=== PATIENT | male | born 1960 | race Hispanic/Latino ===

== ENCOUNTER 2019-12-05 18:06 | Emergency (ER) | payer BC ==
[2019-12-05] MEDS ORDERED: ONDANSETRON 4 MG/2 ML VIAL ONE (19:12)
[2019-12-05] MEDS ORDERED: MORPHINE 4 MG/ML SYR ONE (19:12)
[2019-12-05 19:31] LABS: Absolute Lymphocytes (CBC) 1.4 K/uL (0.7-4.9); Basophils % 0.7 % (0-1.3); Hematocrit 51.3 % (39.6-49.0); Lymphocytes % 13.4 % (15.3-44.8); RBC Red Blood Cell Count 6.26 M/uL (4.33-5.43)
[2019-12-05 19:53] LABS: Albumin 4.5 g/dL (3.4-5.0); Bilirubin Direct 0.1 mg/dL (0-0.2); Bilirubin Total 0.6 mg/dL (0.2-1.0); Potassium 4.1 mmol/L (3.5-5.1); Protein, Total 8.9 g/dL (6.4-8.2)
--- NOTE | 2019-12-05 20:21 | RAD REPORT ---
EXAM DESCRIPTION: CTAbdomen Pelvis W Contrast - 12/05/2019 8:11 pm CLINICAL HISTORY: Abdominal pain. ABD PAIN COMPARISON: No comparisons TECHNIQUE: Biphasic CT imaging of the abdomen and pelvis was performed with 100 ml non-ionic IV cont rast. All CT scans are performed using dose optimization technique as appropriate and may include automated exposure control or mA/KV adjustment according to patient size. FINDINGS: Linear subsegmental atelectasis in both medial lung bases. The liver, spleen, pancreas, adrenal glands and right kidney are within normal limits. 8 mm stone is present in the proximal left ureter (1330 HU) with mild left hydronephrosis. No bowel obstruction, free air, free fluid or abscess. Small fat containing umbilical hernia. The gallito endix is normal. No evidence of significant lymphadenopathy. No suspicious bony findings. IMPRESSION: 8 mm stone (1330 HU) in the proximal left femur resulting in mild left hydronephrosis.
[2019-12-05] MEDS ORDERED: TAMSULOSIN 0.4 MG SR CAP ONE (20:51)
[2019-12-05] MEDS ORDERED: KETOROLAC 30 MG/ML INJ ONE (20:52)
[2019-12-05] MEDS ORDERED: NA CHLORIDE 0.9% 500 ML ONE (20:52)
[2019-12-05] MEDS ORDERED: CEFTRIAXONE/SWI 1gm 1 GM/10 ML SYR ONE (20:52)
[2019-12-05] MEDS ORDERED: Magnesium Sulfate 2gm IVPB 2 G/50 ML BAG IV ONE (20:54)
--- NOTE | 2019-12-05 21:01 | RAD REPORT ---
EXAM DESCRIPTION: RAD - Abdomen 1 View (KUB) - 12/05/2019 8:56 pm CLINICAL HISTORY: ABD PAIN Pain COMPARISON: Abdomen Pelvis W Contrast dated 12/05/2019 FINDINGS: The bowel gas pattern is non-obstructive. No evidence of free air or pneumatosis. Bena s tone is seen projecting at the level of the left L3 transverse process.
--- NOTE | 2019-12-05 21:43 | ER ---
Nurse's Notes [facility] Name: Arnav Swain Age: 59 yrs Sex: Male : 1960 Arrival Date: 12/05/2019 Time: 18:10 Bed 16 Private MD: Levon Thompson Diagnosis: Hydronephrosis with renal and ureteral calculous obstruction Presentation: 12/05 18:26 Presenting complaint: Patient states: pain last night and couldn't sleep. pain to LLQ, iw denies n/v/d , last BM was yesterday and normal. Transition of care: patient was not received from another setting of care. Onset of symptoms was December 05, 2019. Risk Assessment: Do you want to hurt yourself or someone else? Patient reports no desire to harm self or others. Initial Sepsis Screen: Does the patient meet any 2 criteria? No. Patient's initial sepsis screen is negative. Does the patient have a suspected source of infection? No. Patient's initial sepsis screen is negative. Care prior to arrival: None. 18:26 Method Of Arrival: Ambulatory iw 18:26 Acuity: BERHANE 3 iw Historical: - Allergies: 18:29 No Known Allergies; iw - Home Meds: 18:29 clonidine HCl 0.1 mg Oral tab [Active]; metformin 500 mg Oral Tb24 2 tabs 2 times per iw day [Active]; clonazepam 0.5 mg Oral TbDL nightly [Active]; hydrochlorothiazide 12.5 mg Oral tab 1 tab once daily [Active]; nifedipine 90 mg Oral TbER 1 tab once daily [Active]; - PMHx: 18:29 Hypertension; Diabetes - NIDDM; iw - PSHx: 18:29 None; iw - Immunization history:: Adult Immunizations not up to date. - Social history:: Smoking status: . - Ebola Screening: : Patient negative for fever greater than or equal to 101.5 degrees Fahrenheit, and additional compatible Ebola Virus Disease symptoms Patient denies exposure to infectious person Patient denies travel to an Ebola-affected area in the 21 days before illness onset No symptoms or risks identified at this time. Screenin:21 Abuse screen: Denies threats or abuse. Nutritional screening: No deficits noted. ea Tuberculosis screening: No symptoms or risk factors identified. Fall Risk None identified. Assessment: 19:19 General: Appears uncomfortable, Behavior is calm, cooperative, appropriate for age. ea Pain: Complains of pain in abdomen. Neuro: Level of Consciousness is awake, alert, obeys commands, Oriented to person, place, time. Respiratory: Airway is patent Respiratory effort is even, unlabored, Respiratory pattern is regular, symmetrical. GI: Bowel sounds present X 4 quads. Abd is soft X 4 quads. Derm: Skin is pink, warm \T\ dry. 20:00 Reassessment: Patient and/or family updated on plan of care and expected duration. Pain ea level reassessed. Patient is alert, oriented x 3, equal unlabored respirations, skin warm/dry/pink. 21:28 Reassessment: Patient and/or family updated on plan of care and expected duration. Pain ea level reassessed. Patient is alert, oriented x 3, equal unlabored respirations, skin warm/dry/pink. Vital Signs: 18:29 BP 163 / 100; Pulse 89; Resp 16; Temp 99.3; Pulse Ox 100% on R/A; Weight 91.63 kg; iw Height 5 ft. 9 in. (175.26 cm); Pain 9/10; 19:20 BP 160 / 94; Pulse 78; Resp 18; Pulse Ox 99% on R/A; ea 21:38 BP 160 / 98; Pulse 90; Resp 18; Pulse Ox 100% on R/A; ea 22:10 BP 140 / 85; Pulse 88; Resp 18; Temp 97.2; Pulse Ox 98% ; ea 18:29 Body Mass Index 29.83 (91.63 kg, 175.26 cm) iw ED Course: 18:10 Patient arrived in ED. mr 18:10 Levon Thompson MD is Private Physician. mr 18:27 Triage completed. iw 18:38 Sherman Jackson FNP-C [facility]. la1 18:38 Francis Araya MD is Attending Physician. la1 19:07 Sonam Noble, WENDI is Primary Nurse. ea 19:15 Inserted saline lock: 20 gauge in left antecubital area, using aseptic technique. Blood wh collected. 19:21 Patient has correct armband on for positive identification. Placed in gown. Bed in low ea position. Call light in reach. Side rails up X2. 19:21 Arm band placed on right wrist. Patient placed in an exam room, on a stretcher, on ea pulse oximetry. 20:11 CT Abd/Pelvis - IV Contrast Only In Process Unspecified. EDMS 20:55 Abdomen 1 View (KUB) XRAY In Process Unspecified. EDMS 21:43 Arjun Santiago MD is Referral Physician. la1 22:25 No provider procedures requiring assistance completed. IV discontinued, intact, ea bleeding controlled, No redness/swelling at site. Pressure dressing applied. Administered Medications: 19:18 Drug: Zofran 4 mg Route: IVP; Site: left antecubital; ea 20:00 Follow up: Response: No adverse reaction ea 19:19 Drug: morphine 4 mg Route: IVP; Site: left antecubital; ea 20:00 Follow up: Response: No adverse reaction; Pain is decreased ea 21:05 Drug: TORadol - Ketorolac 15 mg Route: IVP; Site: left antecubital; ea 22:24 Follow up: Response: No adverse reaction; Pain is decreased ea 21:11 Drug: Flomax 0.4 mg Route: PO; ea 22:24 Follow up: Response: No adverse reaction ea 21:11 Drug: Rocephin 1 grams Route: IV; Rate: calculated rate; Site: left antecubital; ea 21:30 Follow up: Response: No adverse reaction; IV Status: Completed infusion ea 21:12 Drug: NS 0.9% 500 ml Route: IV; Rate: bolus; Site: left antecubital; ea 22:24 Follow up: Response: No adverse reaction; IV Status: Completed infusion; IV Intake: ea 500ml 21:12 Drug: Magnesium Sulfate 1 grams Route: IVPB; Infused Over: 1 hrs; Site: left ea antecubital; 22:25 Follow up: Response: No adverse reaction; IV Status: Completed infusion ea Intake: 22:24 IV: 500ml; Total: 500ml. ea Outcome: 21:43 Discharge ordered by . la1 22:26 Discharged to home ambulatory, with family. ea 22:26 Condition: stable 22:26 Discharge instructions given to patient, Instructed on discharge instructions, follow up and referral plans. medication usage, Demonstrated understanding of instructions, follow-up care, medications, Prescriptions given X 4. 22:28 Patient left the ED. ea Signatures: Dispatcher Happy Cosas [facility] Supa, Kelsey mr Aida Leon, RN RN Sherman Santos, CUSTOMER SUPPORT CONSULTANT-C CUSTOMER SUPPORT CONSULTANT-Cla1 Sonam Noble, RN Ivan Vela ea
--- NOTE | 2019-12-05 21:43 | EDPHYS ---
Physician Documentation [facility] Name: Arnav Swain Age: 59 yrs Sex: Male : 1960 Arrival Date: 12/05/2019 Time: 18:10 Bed 16 Private MD: Levon Thompson ED Physician Francis Araya HPI: 12/05 20:15 This 59 yrs old Male presents to ER via Ambulatory with complaints of la1 Abdominal Pain. 20:15 The patient presents with abdominal pain in the left lower quadrant. Onset: The la1 symptoms/episode began/occurred 2 day(s) ago. The symptoms do not radiate. Associated signs and symptoms: Pertinent positives: nausea, Pertinent negatives: diarrhea, vomiting. The symptoms are described as sharp. Modifying factors: The symptoms are alleviated by nothing, the symptoms are aggravated by pressure, touching the area. Severity of pain: At its worst the pain was severe in the emergency department the pain has improved. The patient has not experienced similar symptoms in the past. Historical: - Allergies: 18:29 No Known Allergies; iw - Home Meds: 18:29 clonidine HCl 0.1 mg Oral tab [Active]; metformin 500 mg Oral Tb24 2 tabs 2 times per iw day [Active]; clonazepam 0.5 mg Oral TbDL nightly [Active]; hydrochlorothiazide 12.5 mg Oral tab 1 tab once daily [Active]; nifedipine 90 mg Oral TbER 1 tab once daily [Active]; - PMHx: 18:29 Hypertension; Diabetes - NIDDM; iw - PSHx: 18:29 None; iw - Immunization history:: Adult Immunizations not up to date. - Social history:: Smoking status: . - Ebola Screening: : Patient negative for fever greater than or equal to 101.5 degrees Fahrenheit, and additional compatible Ebola Virus Disease symptoms Patient denies exposure to infectious person Patient denies travel to an Ebola-affected area in the 21 days before illness onset No symptoms or risks identified at this time. ROS: 20:18 Constitutional: Negative for fever, chills, and weight loss, Eyes: Negative for injury, la1 pain, redness, and discharge, ENT: Negative for injury, pain, and discharge, Neck: Negative for injury, pain, and swelling, Cardiovascular: Negative for chest pain, palpitations, and edema, Respiratory: Negative for shortness of breath, cough, wheezing, and pleuritic chest pain. 20:18 Back: Negative for injury and pain, : Negative for injury, bleeding, discharge, and swelling, MS/Extremity: Negative for injury and deformity, Neuro: Negative for headache, weakness, numbness, tingling, and seizure. 20:18 Abdomen/GI: Positive for abdominal pain. Exam: 20:18 Constitutional: This is a well developed, well nourished patient who is awake, alert, la1 and in no acute distress. Head/Face: Normocephalic, atraumatic. Eyes: Periorbital areas with no swelling, redness, or edema. ENT: Mucous membranes moist. Neck: Trachea midline Chest/axilla: Normal chest wall appearance and motion. Nontender with no deformity. No lesions are appreciated. Cardiovascular: Regular rate and rhythm with a normal S1 and S2. No gallops, murmurs, or rubs. Normal PMI, no JVD. No pulse deficits. Respiratory: Lungs have equal breath sounds bilaterally, clear to auscultation No rales, rhonchi or wheezes noted. No increased work of breathing, no retractions or nasal flaring. 20:18 Abdomen/GI: Inspection: obese Bowel sounds: normal, in all quadrants, Palpation: soft, in all quadrants, moderate abdominal tenderness, in the left lower quadrant, Indicators: McBurney's point is not tender, Ruiz's sign is negative, Rovsing's sign is negative, Obturator sign is negative, Psoas sign is negative. Vital Signs: 18:29 BP 163 / 100; Pulse 89; Resp 16; Temp 99.3; Pulse Ox 100% on R/A; Weight 91.63 kg; iw Height 5 ft. 9 in. (175.26 cm); Pain 9/10; 19:20 BP 160 / 94; Pulse 78; Resp 18; Pulse Ox 99% on R/A; ea 21:38 BP 160 / 98; Pulse 90; Resp 18; Pulse Ox 100% on R/A; ea 22:10 BP 140 / 85; Pulse 88; Resp 18; Temp 97.2; Pulse Ox 98% ; ea 18:29 Body Mass Index 29.83 (91.63 kg, 175.26 cm) iw MDM: 19:16 Patient medically screened. la1 20:57 Data reviewed: vital signs, nurses notes, lab test result(s), radiologic studies, I la1 have discussed the patient's presentation/case with the attending Emergency Department Physician; and as a result, I will discharge patient. Counseling: I had a detailed discussion with the patient and/or guardian regarding: the historical points, exam findings, and any diagnostic results supporting the discharge/admit diagnosis, lab results, radiology results, the need for outpatient follow up, a urologist, to return to the emergency department if symptoms worsen or persist or if there are any questions or concerns that arise at home. Response to treatment: the patient's symptoms have mildly improved after treatment, patient is well hydrated. and as a result, I will discharge patient. Physician consultation: Arjun Santiago MD was called at 20:57, was contacted at 20:57, regarding consult, outpatient follow-up, tomorrow, and will see patient in office, tomorrow. Special discussion: Based on the history and exam findings, there is no indication for further emergent testing or inpatient evaluation. I discussed with the patient/guardian the need to see the urologist for further evaluation of the symptoms. 12/05 19:07 Order name: Basic Metabolic Panel; Complete Time: 19:56 12/05 19:07 Order name: CBC with Diff; Complete Time: :56 12/05 19:07 Order name: Creatinine for Radiology; Complete Time: :56 12/05 19:07 Order name: Hepatic Function; Complete Time: 19:56 12/05 19:07 Order name: Lipase; Complete Time: 19:56 12/05 22:13 Order name: Urine Dipstick--Ancillary (enter results) [facility] 12/05 19:16 Order name: CT Abd/Pelvis - IV Contrast Only; Complete Time: 21:10 tx12/05 20:33 Order name: Abdomen 1 View (KUB) XRAY; Complete Time: 21:10 tx12/05 19:07 Order name: IV Saline Lock; Complete Time: 19:16 12/05 19:07 Order name: Labs collected and sent; Complete Time: 19:17 12/05 20:30 Order name: Urine Dipstick-Ancillary (obtain specimen); Complete Time: 22:12 tx Administered Medications: 19:18 Drug: Zofran 4 mg Route: IVP; Site: left antecubital; ea 20:00 Follow up: Response: No adverse reaction ea 19:19 Drug: morphine 4 mg Route: IVP; Site: left antecubital; ea 20:00 Follow up: Response: No adverse reaction; Pain is decreased ea 21:05 Drug: TORadol - Ketorolac 15 mg Route: IVP; Site: left antecubital; ea 22:24 Follow up: Response: No adverse reaction; Pain is decreased ea 21:11 Drug: Flomax 0.4 mg Route: PO; ea 22:24 Follow up: Response: No adverse reaction ea 21:11 Drug: Rocephin 1 grams Route: IV; Rate: calculated rate; Site: left antecubital; ea 21:30 Follow up: Response: No adverse reaction; IV Status: Completed infusion ea 21:12 Drug: NS 0.9% 500 ml Route: IV; Rate: bolus; Site: left antecubital; ea 22:24 Follow up: Response: No adverse reaction; IV Status: Completed infusion; IV Intake: ea 500ml 21:12 Drug: Magnesium Sulfate 1 grams Route: IVPB; Infused Over: 1 hrs; Site: left ea antecubital; 22:25 Follow up: Response: No adverse reaction; IV Status: Completed infusion ea Disposition: 12/05/19 21:43 Discharged to Home. Impression: Hydronephrosis with renal and ureteral calculous obstruction. - Condition is Stable. - Discharge Instructions: Kidney Stones, Hydronephrosis. - Prescriptions for Cipro 500 mg Oral Tablet - take 1 tablet by ORAL route every 12 hours for 7 days; 14 tablet. Tylenol- Codeine #3 300-30 mg Oral Tablet - take 2 tablets by ORAL route every 6 hours As needed; 20 tablet. Zofran 4 mg Oral Tablet - take 1 tablet by ORAL route every 12 hours As needed; 6 tablet. Flomax 0.4 mg Oral Capsule, Sust. Release 24 hr - take 1 capsule by ORAL route once daily 1/2 hour following the same meal each day; 15 capsule. - Medication Reconciliation Form, Thank You Letter, Antibiotic Education, Prescription Opioid Use, Work release form form. - Follow up: Arjun Santiago MD; When: Tomorrow. - Problem is new. - Symptoms have improved. - Notes: Go to Dr. Hurt office at 0730 tomorrow morning. Address and phone number are in the discharge paperwork. Make sure you have the disk with you that was given to you in the ER. Addendum: 12/07/2019 19:48 Co-signature as Attending Physician, Francis Araya MD. r n Signatures: Dispatcher [employer] Aida Parish RN RN iw Nieto, Roman, MD MD rn Sherman Jackson, STATE ATTORNEY-C STATE ATTORNEY-Cla1 Sonam Noble RN RN ea Corrections: (The following items were deleted from the chart) 12/05 22:28 21:43 12/05/2019 21:43 Discharged to Home. Impression: Hydronephrosis with renal and ea ureteral calculous obstruction. Condition is Stable. Forms are Medication Reconciliation Form, Thank You Letter, Antibiotic Education, Prescription Opioid Use. Follow up: Arjun Santiago; When: Tomorrow. Problem is new. Symptoms have improved. la1
[2019-12-05 22:21] LABS: Urine Blood 2+ (NEG); Urine Glucose NEGATIVE (NEG); Urine Protein NEGATIVE (NEG); Urine Specific Gravity 1.015 (1.005-1.030)
[2019-12-05 22:48] VITALS: BP 140/85; TEMP 97.2; O2SAT 98
== END 2019-12-05 22:28 | disposition home or self-care (01) ==
LOC: ER 18:06
DX: N13.2 Hydronephrosis with renal and ureteral calculous obstruction (principal); I10 Essential (primary) hypertension; E11.9 Type 2 diabetes mellitus without complications
CPT/HCPCS: 96365; 85025; 80048; 36415; 80076; 81003; 83690; 74177; 74018; 96375; 99284; Q9967; J3475; J0696; J7040; J2405

== ENCOUNTER 2024-08-22 06:51 | Inpatient (IN) | payer BC, OTHER ==
[2024-08-22 07:35] LABS: Absolute Basophils 0.1 K/uL (0-0.5); Absolute Lymphocytes (CBC) 1.4 K/uL (0.7-4.9); Absolute Monocytes 0.6 K/uL (0.1-1.3); Absolute Neutrophil 5.6 K/uL (1.8-8.0); Basophils % 0.8 % (0-1.3); Eosinophils % 0.2 % (0-4.4); Hemoglobin 17.1 g/dL (13.6-17.9); Lymphocytes % 17.8 % (15.3-44.8); MCH 27.4 pg (27.0-35.0); MCHC 32.8 g/dL (32.0-36.0); MCV 83.4 fL (80-100); MPV 7.5 fL (7.6-11.3); Neutrophils % 73.2 % (41.7-73.7); Nucleated Red Blood Cells % 0.3 % (0-0); Platelets 219 thou/uL (152-406); RBC Red Blood Cell Count 6.24 M/uL (4.33-5.43); Red Cell Distribution Width 14.6 % (12.1-15.2)
--- NOTE | 2024-08-22 07:40 | RAD REPORT ---
EXAMINATION: ONE VIEW CHEST XR CLINICAL INDICATION: Male, 64 years old.CHEST PAIN TECHNIQUE: 1 View, AP supine, X-ray of the chest was performed. [id number]. COMPARISON: 12/06/2019 FINDINGS: Lungs and pleura: Clear lungs. No effusion. Heart and mediastinum: Normal heart size. Unremarkable mediastinal contours. Osseous structures: No acute abnormality. Tubes/lines: None Other: None. IMPRESSION: No acute intrathoracic abnormality.
[2024-08-22 07:55] LABS: Troponin High Sensitivity 4709.6 pg/mL (<58.9)
[2024-08-22] MEDS ORDERED: ASPIRIN 81 MG CHEWABLE TABLET ONE (08:17)
[2024-08-22] MEDS ORDERED: ONDANSETRON 4 MG/2 ML VIAL ONE (08:17)
[2024-08-22] MEDS ORDERED: KETOROLAC 30 MG/ML INJ ONE (08:17)
[2024-08-22] MEDS ORDERED: METOCLOPRAMIDE 10 MG/2mL INJ ONE (08:18)
[2024-08-22] MEDS ORDERED: HEPARIN 5000 UNIT/ML 1 ML VIAL ONE ×2 (08:18→10:44)
[2024-08-22] MEDS ORDERED: NA CHLORIDE 0.9% 1,000 ML ONE (08:18)
[2024-08-22] MEDS ORDERED: MORPHINE 4 MG/ML SYR ONE (08:18)
[2024-08-22] MEDS ORDERED: FAMOTIDINE 20 MG/2 ML VIAL IV ONE (08:18)
[2024-08-22] MEDS ORDERED: HEPARIN/D5W 25,000 UNIT/500 ML BAG IV ONE (08:19)
[2024-08-22 08:22] LABS: ALT/SGPT 57 U/L (16-61); AST/SGOT 76 U/L (15-37); Albumin 3.7 g/dL (3.4-5.0); Albumin/Globulin Ratio 0.9 (1.1-1.8); Alkaline Phosphatase 94 U/L (45-117); Bilirubin Total 0.4 mg/dL (0.2-1.0); Globulin 3.9 g/dL (2.3-3.5); Protein, Total 7.6 g/dL (6.4-8.2)
[2024-08-22 08:24] LABS: Bilirubin Direct < 0.2 mg/dL (0-0.2); Bilirubin Indirect, Calculated 0.2 mg/dL (0.2-0.8)
--- NOTE | 2024-08-22 08:46 | ER ---
Nurse's Notes [facility] Name: Arnav Swain Age: 64 yrs Sex: Male : 1960 Arrival Date: 08/22/2024 Time: 06:51 Bed 19 Private MD: Diagnosis: Obesity, unspecified;Essential (primary) hypertension;Non ST elevation MO Presentation: 08/22 07:11 Chief complaint: Patient states: felt like he had gastritis last night, then he had iw pain into his chest this morning and nausea. Coronavirus screen: At this time, the client does not indicate any symptoms associated with coronavirus-19. Ebola Screen: No symptoms or risks identified at this time. Initial Sepsis Screen: Does the patient meet any 2 criteria? No. Patient's initial sepsis screen is negative. Does the patient have a suspected source of infection? No. Patient's initial sepsis screen is negative. Risk Assessment: Do you want to hurt yourself or someone else? Patient reports no desire to harm self or others. 07:11 Method Of Arrival: Ambulatory iw 07:11 Acuity: BERHANE 3 iw 07:15 Onset of symptoms was August 21, 2024 at 21:00. bp Triage Assessment: 07:15 General: Appears in no apparent distress. comfortable, Behavior is calm, cooperative, bp appropriate for age. Pain: Complains of pain in epigastric area. EENT: No deficits noted. Neuro: No deficits noted. Cardiovascular: No deficits noted. Respiratory: No deficits noted. GI: Abdomen is non-distended, Reports epigastric pain. : No signs and/or symptoms were reported regarding the genitourinary system. Derm: No deficits noted. Musculoskeletal: No deficits noted. Historical: - Allergies: 07:12 No Known Allergies; iw - Home Meds: 07:12 nifedipine 90 mg Oral TbER 1 tab once daily [Active]; iw - PMHx: 07:12 Hypertensive disorder; iw - PSHx: 07:12 None; iw - Immunization history:: Adult Immunizations up to date. - Infectious Disease History:: Denies. - Family history:: not pertinent. - Social history:: Smoking status: Patient denies any tobacco usage or history of. Screenin:15 [facility] ED Fall Risk Assessment (Adult) History of falling in the last 3 months, bp including since admission No falls in past 3 months (0 pts) Confusion or Disorientation No (0 pts) Intoxicated or Sedated No (0 pts) Impaired Gait No (0 pts) Mobility Assist Device Used No (0 pt) Altered Elimination No (0 pt) Score/Fall Risk Level 0 - 2 = Low Risk Oriented to surroundings. Abuse screen: Denies threats or abuse. Denies injuries from another. Nutritional screening: No deficits noted. Tuberculosis screening: No symptoms or risk factors identified. Assessment: 07:15 General: Appears in no apparent distress. Behavior is calm, cooperative, appropriate bp for age. 09:57 Reassessment: PT LIZ WITH OPHTHALMIC SURGEON. bp Vital Signs: 07:15 BP 162 / 96; Pulse 83; Resp 16; Temp 98; Pulse Ox 98% ; Weight 97.52 kg; bp 09:58 BP 160 / 82; Pulse 87; Resp 16; Pulse Ox 97% ; bp ED Course: 06:57 Patient arrived in ED. [id number] 07:12 Triage completed. iw 07:12 Arm band placed on. iw 07:14 Tom Vigil, RN is Primary Nurse. bp 07:15 Patient has correct armband on for positive identification. Bed in low position. bp 07:15 Initial lab(s) drawn, by me, sent to lab. EKG done, by ED staff, reviewed by Mj Mckay MD. Inserted saline lock: 20 gauge in right forearm, using aseptic technique. Blood collected. Flushed with 10 mL NS. 07:38 XRAY Chest (1 view) In Process Unspecified. EDMS 07:55 Mj Mckay MD is Attending Physician. sp4 08:00 Attending Physician role handed off by Mj Mckay MD miguel 08:00 Peter Villagomez MD is Attending Physician. miguel 08:45 Zhang Bland MD is Hospitalizing Provider. miguel 08:50 Hospitalizing Provider role handed off by Zhang Bland MD miguel 08:50 Brandon Cano is Hospitalizing Provider. miguel 09:27 0927 CM met with at the bedside in the ED exam room. Patient identified by ane name and . Demographic sheet confirmed. Patient states he lives with his in a 2 story home but states they both mainly lives on the first floor only. He reports that prior to admission, he performs ADLs independently. No DME, no HH, no home oxygen or other medical services at this time. Patient does not have an MPOA in place and his PCP is Dr. Levon Thompson. Patient's plan is to return home upon discharge and states his Brandy can transport him home. CM team will continue to follow and coordinate care during this hospital stay. 09:59 No provider procedures requiring assistance completed. Patient admitted, IV remains in bp place. Administered Medications: 08:05 Drug: morphine IVP or IV 4 mg IVP once over 4 mins Route: IVP; Infused Over: 4 mins; bp Site: right forearm; 10:01 Follow up: Response: No adverse reaction bp 08:05 Drug: Ondansetron IVP 4 mg IVP once; over 2 minutes Route: IVP; Site: right forearm; bp 10:00 Follow up: Response: No adverse reaction bp 08:05 Drug: metoCLOPramide IVP 10 mg IVP once; over 1 to 2 minutes Route: IVP; Site: right bp forearm; 10:00 Follow up: Response: No adverse reaction bp 08:05 Drug: NS 0.9% IV 1000 ml IV at 1 bolus Per protocol; 1000 mL bolus Route: IV; Rate: 1 bp bolus; Site: right forearm; 10:00 Follow up: IV Status: Completed infusion; IV Intake: 1000ml bp 08:05 Drug: Famotidine IVP 20 mg IVP once; dilute with 10 mL 0.9% NaCl; give over 2 minutes bp Route: IVP; Site: right forearm; 10:00 Follow up: Response: No adverse reaction bp 08:05 Drug: Aspirin PO Chewable Tablet 324 mg PO once; 81 mg tablets x 4 Route: PO; bp 10:00 Follow up: Response: No adverse reaction bp 08:05 Drug: Heparin (MO Drip) 12 units/kg/hr - ([place] [address] units, D5W IV 500 ml) IV at bp calculated rate Per protocol; Max initial rate 1000 units/hr {Co-Signature: ko1 (Larissa Ross RN).} Route: IV; Rate: calculated rate; Site: right forearm; 09:59 Follow up: IV Status: Infusion continued upon admission bp 08:05 Drug: Heparin (MO-Bolus No thrombolytic) - HEParin IVP 60 units/kg IVP once; Max 5000 bp units {Co-Signature: ko1 (Larissa Ross RN).} Route: IVP; Site: right forearm; 09:59 Follow up: Response: No adverse reaction bp 08:23 Not Given (Duplicate Order): [id number] mg IVP once miguel 08:23 Not Given (Duplicate Order): Heparin (MO-Bolus with thrombolytic) - units/kg miguel IVP once; Max 4000 units 09:00 Drug: Metoprolol PO 50 mg PO once Route: PO; bp 09:59 Follow up: Response: No adverse reaction bp Medication: 07:15 VIS not applicable for this client. bp Intake: 10:00 IV: 1000ml; Total: 1000ml. bp Outcome: 08:46 Decision to Hospitalize by Provider. miguel 09:58 Admitted to Risk Advisor accompanied by nurse, via stretcher, bp 09:58 Condition: stable 09:58 Instructed on the need for admit, 10:03 Patient left the ED. bp Signatures: Dispatcher [employer] EDPeter Walters MD MD cha Williams, Irene, RN WENDI iw Tom Vigil RN RN bp Mila Mendenhall [id number] Mj Mckay MD MD sp4 Bibi Dela Cruz RN RN ane Oliver, Kathy RN ko1 Corrections: (The following items were deleted from the chart) 08:02 07:15 BP 162 / 96; Pulse 83bpm; Resp 16bpm; Pulse Ox 98%; Temp 98F; bp bp
--- NOTE | 2024-08-22 08:46 | EDPHYS ---
Physician Documentation [facility] [place] Name: Arnav Swain Age: 64 yrs Sex: Male : 1960 Arrival Date: 08/22/2024 Time: 06:51 Bed 19 Private MD: MACEY Physician Peter Villagomez HPI: 08/22 08:39 This 64 yrs old Male presents to ER via Ambulatory with complaints of miguel Epigastric Pain, Chest Pain, Nausea. 08:39 The patient or guardian reports chest pain that is located primarily in the substernal miguel area, epigastric area, anterior chest wall, bilaterally. Onset: just prior to arrival, this morning. The pain radiates to back. Associated signs and symptoms: Pertinent positives: abdominal pain, dizziness, lightheadedness, shortness of breath. The chest pain is described as a pressure. Duration: The patient or guardian reports a single episode, that is still ongoing. Modifying factors: The symptoms are alleviated by nothing. the symptoms are aggravated by activity. Severity of pain: At its worst the pain was mild in the emergency department the pain is unchanged. The patient has not experienced similar symptoms in the past. Historical: - Allergies: 07:12 No Known Allergies; iw - Home Meds: 07:12 nifedipine 90 mg Oral TbER 1 tab once daily [Active]; iw - PMHx: 07:12 Hypertensive disorder; iw - PSHx: 07:12 None; iw - Immunization history:: Adult Immunizations up to date. - Infectious Disease History:: Denies. - Family history:: not pertinent. - Social history:: Smoking status: Patient denies any tobacco usage or history of. ROS: 08:39 Constitutional: Negative for fever, chills, and weight loss, Eyes: Negative for injury, miguel pain, redness, and discharge, ENT: Negative for injury, pain, and discharge, Neck: Negative for injury, pain, and swelling, Respiratory: Negative for shortness of breath, cough, wheezing, and pleuritic chest pain, Back: Negative for injury and pain, : Negative for injury, bleeding, discharge, and swelling, MS/Extremity: Negative for injury and deformity, Skin: Negative for injury, rash, and discoloration, Neuro: Negative for headache, weakness, numbness, tingling, and seizure, Psych: Negative for depression, anxiety, suicide ideation, homicidal ideation, and hallucinations, Allergy/Immunology: Negative for hives, rash, and allergies, Endocrine: Negative for neck swelling, polydipsia, polyuria, polyphagia, and marked weight changes, Hematologic/Lymphatic: Negative for swollen nodes, abnormal bleeding, and unusual bruising, 08:39 Cardiovascular: Positive for chest pain, of the chest, 08:39 Respiratory: Positive for shortness of breath, at rest. Exam: 08:39 Constitutional: This is a well developed, well nourished patient who is awake, alert, miguel and in no acute distress. Head/Face: Normocephalic, atraumatic. Eyes: Pupils equal round and reactive to light, extra-ocular motions intact. Lids and lashes normal. Conjunctiva and sclera are non-icteric and not injected. Cornea within normal limits. Periorbital areas with no swelling, redness, or edema. ENT: Nares patent. No nasal discharge, no septal abnormalities noted. Tympanic membranes are normal and external auditory canals are clear. Oropharynx with no redness, swelling, or masses, exudates, or evidence of obstruction, uvula midline. Mucous membranes moist. Neck: Trachea midline, no thyromegaly or masses palpated, and no cervical lymphadenopathy. Supple, full range of motion without nuchal rigidity, or vertebral point tenderness. No Meningismus. Chest/axilla: Normal chest wall appearance and motion. Nontender with no deformity. No lesions are appreciated. Cardiovascular: Regular rate and rhythm with a normal S1 and S2. No gallops, murmurs, or rubs. Normal PMI, no JVD. No pulse deficits. Respiratory: Lungs have equal breath sounds bilaterally, clear to auscultation and percussion. No rales, rhonchi or wheezes noted. No increased work of breathing, no retractions or nasal flaring. Abdomen/GI: Soft, non-tender, with normal bowel sounds. No distension or tympany. No guarding or rebound. No evidence of tenderness throughout. Back: No spinal tenderness. No costovertebral tenderness. Full range of motion. Male : Normal genitalia with no discharge or lesions. Skin: Warm, dry with normal turgor. Normal color with no rashes, no lesions, and no evidence of cellulitis. MS/ Extremity: Pulses equal, no cyanosis. Neurovascular intact. Full, normal range of motion. Neuro: Awake and alert, GCS 15, oriented to person, place, time, and situation. Cranial nerves II-XII grossly intact. Motor strength 5/5 in all extremities. Sensory grossly intact. Cerebellar exam normal. Normal gait. Psych: Awake, alert, with orientation to person, place and time. Behavior, mood, and affect are within normal limits. 08:39 ECG was reviewed by the Attending Physician. 08:41 ECG was reviewed by the Attending Physician. miguel Vital Signs: 07:15 BP 162 / 96; Pulse 83; Resp 16; Temp 98; Pulse Ox 98% ; Weight 97.52 kg; bp 09:58 BP 160 / 82; Pulse 87; Resp 16; Pulse Ox 97% ; bp MDM: 08:00 Patient medically screened. miguel 08:42 Differential diagnosis: abnormal EKG, acute myocardial infarction, acute pericarditis, miguel anxiety, coronary artery disease chest wall pain, cholecystitis, Cholelithiasis costochondritis, esophagitis, herpes zoster, hiatal hernia, mitral valve prolapse, pancreatitis, pneumonia, pulmonary embolus, stable angina, thoracic aortic disection, unstable angina. HEART Score: History: Moderately Suspicious (1), ECG: Non specific repolarization disturbance / LBTB / PM (1), Age: > or = 65 years (2), Risk Factors: > or = 3 Risk factors for atherosclerotic disease (2), [Hypercholesterolemia] [Hypertension] [+ Family HX] [Obesity] Troponin: > or = 3 x Normal Limit (2). The patient was given aspirin in the Emergency Department. ADWOA Risk Score: 1 - patient's age is greater or equal to 65 years, 1 - Three or more CAD risk factors, 1- Known CAD, 1 - Recent [<24hrs] Severe Angina, 1 - Elevated Cardiac Markers, TOTAL SCORE = 5. Data reviewed: vital signs, nurses notes, lab test result(s), EKG, radiologic studies, plain films. Consideration of Admission/Observation Patient was admitted/placed on observation. Escalation of care including admission/observation considered. I considered the following discharge prescriptions or medication management in the emergency department Medications were administered in the Emergency Department. See MAR. Independent interpretation of the following test(s) in the Emergency Department EKG: See my EKG interpretation above. Test considered but Not performed: CT: no ct chest. Historians other than the Patient: Spouse/Significant Other: well informed. Care significantly affected by the following chronic conditions: Hypertension, Obesity. Counseling: I had a detailed discussion with the patient and/or guardian regarding the historical points, exam findings, and any diagnostic results supporting the discharge/admit diagnosis, the presence of at least one elevated blood pressure reading (>120/80) during this emergency department visit, lab results, radiology results, the need for further work-up and treatment in the hospital. 08/22 07:13 Order name: Basic Metabolic Panel; Complete Time: 08:37 iw 08/22 07:13 Order name: CBC with Diff; Complete Time: 07:55 iw 08/22 07:13 Order name: Troponin HS; Complete Time: 08:37 iw 08/22 07:43 Order name: LFT's; Complete Time: 08:37 sp4 08/22 08:37 Order name: Lipase [facility] 08/22 08:57 Order name: Ptt, Activated; Complete Time: 09:31 miguel 08/22 09:46 Order name: Thyroid Stimulating Hormone [facility] 08/22 09:46 Order name: CBC with Automated Diff [facility] 08/22 09:46 Order name: CBC with Automated Diff [facility] 08/22 09:46 Order name: Comprehensive Metabolic Panel [facility] 08/22 09:46 Order name: Comprehensive Metabolic Panel [facility] 08/22 09:46 Order name: Hemoglobin A1c [facility] 08/22 09:46 Order name: Hemoglobin A1c [facility] 08/22 09:46 Order name: Lipid Profile [facility] 08/22 09:46 Order name: Lipid Profile [facility] 08/22 09:46 Order name: Magnesium [facility] 08/22 09:46 Order name: Magnesium [facility] 08/22 07:13 Order name: XRAY Chest (1 view); Complete Time: 07:55 iw 08/22 07:13 Order name: EKG; Complete Time: 07:13 iw 08/22 09:46 Order name: CONS Physician Consult [facility] 08/22 07:13 Order name: Cardiac monitoring; Complete Time: 07:15 iw 08/22 07:13 Order name: EKG - Nurse/Tech; Complete Time: 07:15 iw 08/22 07:13 Order name: IV Saline Lock; Complete Time: 07:31 iw 08/22 07:13 Order name: Labs collected and sent; Complete Time: 07:31 iw 08/22 07:13 Order name: O2 Per Protocol; Complete Time: 07: iw 08/22 07:13 Order name: O2 Sat Monitoring; Complete Time: : iw 08/22 08:36 Order name: Bilateral blood pressure; Complete Time: 09:01 miguel EC:39 Rate is 87 beats/min. Rhythm is regular. QRS [place] is Normal. QT interval is normal. No miguel Q waves. T waves are Normal in leads II, III, aVF. Clinical impression: NSR w/ Non-specific ST/T Changes. Interpreted by me. Reviewed by me. 08:41 Rate is 84 beats/min. Rhythm is regular. QRS [place] is Normal. [place] interval is normal. QRS miguel interval is normal. QT interval is normal. No Q waves. T waves are Normal. No ST changes noted. Clinical impression: NSR w/ Non-specific ST/T Changes. Interpreted by me. Reviewed by me. Administered Medications: 08:05 Drug: morphine IVP or IV 4 mg IVP once over 4 mins Route: IVP; Infused Over: 4 mins; bp Site: right forearm; 10:01 Follow up: Response: No adverse reaction bp 08:05 Drug: Ondansetron IVP 4 mg IVP once; over 2 minutes Route: IVP; Site: right forearm; bp 10:00 Follow up: Response: No adverse reaction bp 08:05 Drug: metoCLOPramide IVP 10 mg IVP once; over 1 to 2 minutes Route: IVP; Site: right bp forearm; 10:00 Follow up: Response: No adverse reaction bp 08:05 Drug: NS 0.9% IV 1000 ml IV at 1 bolus Per protocol; 1000 mL bolus Route: IV; Rate: 1 bp bolus; Site: right forearm; 10:00 Follow up: IV Status: Completed infusion; IV Intake: 1000ml bp 08:05 Drug: Famotidine IVP 20 mg IVP once; dilute with 10 mL 0.9% NaCl; give over 2 minutes bp Route: IVP; Site: right forearm; 10:00 Follow up: Response: No adverse reaction bp 08:05 Drug: Aspirin PO Chewable Tablet 324 mg PO once; 81 mg tablets x 4 Route: PO; bp 10:00 Follow up: Response: No adverse reaction bp 08:05 Drug: Heparin ([place] Drip) 12 units/kg/hr - ([place] [address] units, D5W IV 500 ml) IV at bp calculated rate Per protocol; Max initial rate 1000 units/hr {Co-Signature: [email or web address] (Larissa Ross RN).} Route: IV; Rate: calculated rate; Site: right forearm; 09:59 Follow up: IV Status: Infusion continued upon admission bp 08:05 Drug: Heparin ([place]-Bolus No thrombolytic) - HEParin IVP 60 units/kg IVP once; Max 5000 bp units {Co-Signature: [email or web address] (Larissa Ross RN).} Route: IVP; Site: right forearm; 09:59 Follow up: Response: No adverse reaction bp 08:23 Not Given (Duplicate Order): [id number] mg IVP once miguel 08:23 Not Given (Duplicate Order): Heparin ([place]-Bolus with thrombolytic) - [id number] units/kg miguel IVP once; Max 4000 units 09:00 Drug: Metoprolol PO 50 mg PO once Route: PO; bp 09:59 Follow up: Response: No adverse reaction bp Disposition: 08:42 Critical Care:. miguel Disposition Summary: 08/22/24 08:46 Hospitalization Ordered Notes: Hospitalization Status: Inpatient Admission miguel Location: Intensive Care Unit miguel Condition: Serious miguel Problem: new miguel Symptoms: have improved miguel Bed/Room Type: Standard miguel Room Assignment: miguel Provider: Brandon Cano(08/22/24 08:52) miguel Diagnosis - Obesity, unspecified miguel - Essential (primary) hypertension miguel - Non ST elevation [place] miguel Forms: - Medication Reconciliation Form miguel - SBAR form miguel - Leadership Thank You Letter miguel Critical care time excluding procedures: 08:42 Critical care time: Bedside Care: 30 minutes, Consultation: 10 minutes, Family miguel Intervention: 10 minutes. Total time: 50 minutes Signatures: Dispatcher [employer] EDMS Peter Villagomez MD MD cha Waters, Shelly, GREENHOUSE OR NURSERY TRANSPLANTER-C GREENHOUSE OR NURSERY TRANSPLANTER-Csnw Aida Leon, Tom Gomes RN, RN RN bp Potepalov, Sergey, MD MD sp4 Larissa Ross RN [email or web address] Corrections: (The following items were deleted from the chart) 07:13 07:13 BASIC METABOLIC PANEL+C.LAB.BRZ ordered. EDMS EDMS 07:13 07:13 CBC+H.LAB.BRZ ordered. EDMS EDMS 07:13 07:13 Troponin High Sensitivity+C.LAB.BRZ ordered. EDMS EDMS 07:43 07:43 HEPATIC FUNCTION+C.LAB.BRZ ordered. EDMS EDMS 08:52 08:46 Zhang Bland cha, cha
[2024-08-22] MEDS ORDERED: METOPROLOL TAR 50 MG TAB ONE (08:56)
[2024-08-22] MEDS ORDERED: SODIUM CHLORIDE 0.9% 10ML INJ IV PRN (09:34)
[2024-08-22] MEDS ORDERED: MORPHINE 4 MG/ML SYR IV PRN (09:34)
--- NOTE | 2024-08-22 09:49 | P.HP ---
Certification for Inpatient Patient admitted to: Inpatient With expected LOS: >2 Midnights Practitioner: I am a practitioner with admitting privileges, knowledge of patient current condition, hospital course, and medical plan of care. Services: Services provided to patient in accordance with Admission requirements found in Title 42 Section 412.3 of the Code of Federal Regulations Patient History Date of Service: 08/22/24 Reason for admission: ACS with NSTEMI History of Present Illness: Mr. Clint Swain is a 64-year-old male with a past medical history of hypertension. He works nights and while there felt severe indigestion with some nausea. He left early from work and went to sleep and at 04 100 awoke with significant chest pain. Pain was located primarily in the substernal area, epigastric area, and anterior chest wall, bilaterally with radiation to the back. Associated signs and symptoms of abdominal pain, dizziness, lightheadedness, and shortness of breath. The chest pain was described as pressure. Mr. Clint Swain presented to the emergency department and was given Lopressor 50 mg p.o., aspirin 324 mg p.o., and started on a heparin drip. He also received Reglan 10 mg IV, Toradol 30 mg IV, morphine 4 mg IV, 1500 mL normal saline bolus, Zofran 4 mg IV, and Pepcid 20 mg IV. He was pain-free at the time of my assessment. Dr. Zamudio evaluated the patient and plans to take him to the Refractory Technician shortly. EKG: Rate is 87 beats/min. Rhythm is regular. QRS [place] is Normal. QT interval is normal. No Q waves. T waves are Normal in leads II, III, aVF. Clinical impression: NSR w/ nonspecific ST/T changes (V2 suspicious) Imaging: Chest x-ray with no acute intrathoracic abnormality Labs: CBC unremarkable, H/H 17.1/50 platelets 219; Chem-7 unremarkable with a creatinine of 1.11 GFR 73, glucose 209, lipase 49. Troponin significant for 4709.6 The hospitalist team will admit him for ACS with non-STEMI Allergies No Known Allergies Allergy (Unverified 08/22/24 09:49) Home medications list reviewed: Yes (Nifedipine 90mg po daily) - Past Medical/Surgical History Has patient received pneumonia vaccine in the past: No -: HTN -: Kidney stones -: Kidney stone - ureter stent Psychosocial/ Personal History: Works nights, lives at home with his - Social History Smoking Status: Unknown if ever smoked CD- Drugs: No Caffeine use: Yes Place of Residence: Home Review of Systems 10-point ROS is otherwise unremarkable General: Unremarkable Eyes: Unremarkable ENT: Unremarkable Respiratory: Unremarkable Cardiovascular: Chest Pain, As per HPI Gastrointestinal: Nausea, Other (indigestion), As per HPI Genitourinary: Unremarkable Musculoskeletal: Unremarkable Integumentary: Unremarkable Neurological: Unremarkable Lymphatics: Unremarkable Physical Examination - Vital Signs Blood Pressure: 147/81 Pulse: 99 Respirations: 20 Pulse Ox (%): 93 (RA) - Physical Exam General: Alert, In no apparent distress, Oriented x3 HEENT: Atraumatic, Normocephalic Neck: Supple Respiratory: Clear to auscultation bilaterally Cardiovascular: No edema, Normal pulses, Regular rate/rhythm, Normal S1 S2 Capillary refill: <2 Seconds Gastrointestinal: Normal bowel sounds Musculoskeletal: No clubbing Integumentary: No rashes Neurological: Normal speech, Normal tone, Normal affect Lymphatics: No axilla or inguinal lymphadenopathy External genitalia: Deferred Rectal: Deferred - Studies Laboratory Data (last 24 hrs) 08/22/24 08/22/24 08/22/24 09:03 07:20 07:20 WBC 7.70 Hgb 17.1 Hct 52.0 H Plt Count 219 APTT 167.6 H* Sodium Potassium BUN Creatinine Glucose Total Bilirubin 0.4 AST 76 H ALT 57 Alkaline Phosphatase 94 08/22/24 07:20 WBC Hgb Hct Plt Count APTT Sodium 139 Potassium 4.0 BUN 18 Creatinine 1.11 Glucose 209 H Total Bilirubin AST ALT Alkaline Phosphatase Assessment and Plan - Plan ACS with NSTEMI Pain control ASA Statin BB per cardiology Nitro drip Tele Consult Dr. 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
[2024-08-22] MEDS ORDERED: D10W 125 ML IV PRN (09:52)
[2024-08-22] MEDS ORDERED: GLUCAGON 1 MG/VIAL IM PRN (09:52)
[2024-08-22] MEDS: NA CHLORIDE 0.9% 500 ML ONE (10:05)
--- NOTE | 2024-08-22 10:32 | P.CNS ---
Date of Consult: 08/22/24 Chief Complaint: NSTEMI History of Present Illness: Patient with PMH of HTN presented with chest pain that started yesterday, woke him from sleep, started as epigastric pain first, denies any other cardiac symptoms, no palpitations, no syncope. Allergies No Known Allergies Allergy (Unverified 08/22/24 09:49) Home medications list reviewed: Yes - Past Medical/Surgical History -: HTN -: Kidney stones -: Kidney stone - ureter stent Psychosocial/ Personal History: Works nights, lives at home with his - Social History CD- Drugs: No Caffeine use: Yes Place of Residence: Home Review of Systems 10-point ROS is otherwise unremarkable Physical Examination Temp Pulse Resp BP Pulse Ox 98 F 87 16 160/82 H 08/22/24 10:22 08/22/24 10:24 08/22/24 10:08/22/24 10: General: Alert, In no apparent distress HEENT: Atraumatic, PERRLA, Mucous membr. moist/pink, EOMI, Sclerae nonicteric Neck: Supple, 2+ carotid pulse no bruit, No LAD, Without JVD or thyroid abnormality Respiratory: Clear to auscultation bilaterally, Normal air movement Cardiovascular: Regular rate/rhythm, Normal S1 S2 Gastrointestinal: Normal bowel sounds, No tenderness Musculoskeletal: No tenderness Integumentary: No rashes Neurological: Normal gait, Normal speech, Normal tone, Normal affect Lymphatics: No axilla or inguinal lymphadenopathy Laboratory Data (last 24 hrs) 08/22/24 08/22/24 08/22/24 09:03 08:37 07:20 WBC Hgb Hct Plt Count APTT 167.6 H* Sodium Potassium BUN Creatinine Glucose Total Bilirubin 0.4 AST 76 H ALT 57 Alkaline Phosphatase 94 Lipase Cancelled 08/22/24 08/22/24 07:20 07:20 WBC 7.70 Hgb 17.1 Hct 52.0 H Plt Count 219 APTT Sodium 139 Potassium 4.0 BUN 18 Creatinine 1.11 Glucose 209 H Total Bilirubin AST ALT Alkaline Phosphatase Lipase - Problems (1) NSTEMI (non-ST elevated myocardial infarction) Current Visit: Yes Status: Acute Plan: NPO for coronary angiogram Heparin drip ASA 81 mg daily Plavix 75 mg daily Lipitor 40 mg daily Echo (2) HTN (hypertension) Current Visit: Yes Status: Acute Plan: continue to monitor for now.
[2024-08-22 10:33] LABS: Thyroid Stimulating Hormone 1.03 uIU/mL (0.358-3.740)
[2024-08-22] MEDS: FENTANYL CITR 100 MCG/2 ML ONE (10:36)
[2024-08-22] MEDS: MIDAZOLAM HCL 2 MG/2 ML INJ ONE (10:37)
[2024-08-22] MEDS ORDERED: LIDOCAINE 1% 20 ML MDV ONE (10:43)
[2024-08-22] MEDS ORDERED: HEPARIN 10,000 UNIT/10 ML VIAL IV ONE (10:43)
[2024-08-22] MEDS ORDERED: CLOPIDOGREL 75 MG TABLET ONE (10:43)
[2024-08-22] MEDS ORDERED: HEPA 1000U/500MLS 2,000 UNIT/1,000 ML BAG IV ONE (10:43)
[2024-08-22] MEDS ORDERED: TICAGRELOR 90 MG TABLET PO ONE (10:44)
[2024-08-22] MEDS ORDERED: ASPIRIN 325 MG TAB ONE (10:44)
[2024-08-22] MEDS: NIFEDIPINE XL 90 MG TABLET PO SCH (11:00)
[2024-08-22] MEDS: INSULIN REGULAR (HUMAN) 100 UNIT/ML SQ SCH (12:00)
[2024-08-22 15:36] VITALS: BMI 32.6
[2024-08-22] MEDS: HEPARIN/D5W 25,000 UNIT/500 ML BAG IV SCH (16:46)
--- NOTE | 2024-08-22 16:51 | EKG ---
Test Date: 2024-08-22 Test Time: 07:08:46 Developmental Therapist: HERMELINDA MEASUREMENT RESULTS: Intervals: Rate: 87 NE: 186 QRSD: 98 QT: 376 QTc: 452 [place]: P: 63 NE: 186 QRS: 35 T: 74 INTERPRETIVE STATEMENTS: Normal sinus rhythm Septal infarct, age undetermined Abnormal ECG Compared to ECG 12/06/2019 08:43:58 Myocardial infarct finding now present Electronically Signed On 08-22-24 16:50:03 CDT by Trino Glez
--- NOTE | 2024-08-22 16:51 | EKG ---
Test Date: 2024-08-22 Test Time: 08:27:29 [employer] Clerk: PRIYANKA MEASUREMENT RESULTS: Intervals: Rate: 84 IA: 178 QRSD: 100 QT: 392 QTc: 463 [place]: P: 48 IA: 178 QRS: 40 T: 67 INTERPRETIVE STATEMENTS: Normal sinus rhythm Septal infarct, age undetermined Abnormal ECG Compared to ECG 08/22/2024 07:08:46 No significant changes Electronically Signed On 08-22-24 16:50:00 CDT by Trino Glez
[2024-08-22] MEDS: ATORVASTATIN 40 MG TAB PO SCH (20:54)
[2024-08-22] MEDS: PANTOPRAZOLE 40 MG INJ IVP SCH (20:54)
[2024-08-22] MEDS ORDERED: PNEUMOCOCCAL VACCINE 0.5 ML IMVAC ONE (22:00)
[2024-08-23] MEDS: NA CHLORIDE 0.9% 1,000 ML IV SCH (06:13)
[2024-08-23] MEDS: METOPROLOL XL 50 MG TAB PO SCH (06:13)
[2024-08-23 07:04] LABS: Absolute Basophils 0.1 K/uL (0-0.5); Absolute Lymphocytes (CBC) 1.7 K/uL (0.7-4.9); Absolute Monocytes 1.2 K/uL (0.1-1.3); Absolute Neutrophil 7.6 K/uL (1.8-8.0); Basophils % 0.7 % (0-1.3); Eosinophils % 0.1 % (0-4.4); Hematocrit 49.5 % (39.6-49.0); Hemoglobin 16.3 g/dL (13.6-17.9); MCH 27.7 pg (27.0-35.0); MCHC 32.9 g/dL (32.0-36.0); MCV 84.1 fL (80-100); MPV 8.3 fL (7.6-11.3); Neutrophils % 72.2 % (41.7-73.7); Platelets 217 thou/uL (152-406); RBC Red Blood Cell Count 5.88 M/uL (4.33-5.43); Red Cell Distribution Width 14.8 % (12.1-15.2)
[2024-08-23 07:12] LABS: Albumin 3.2 g/dL (3.4-5.0); Albumin/Globulin Ratio 0.8 (1.1-1.8); Anion Gap 10.1 mEq/L (5.0-15.0); Bilirubin Total 0.6 mg/dL (0.2-1.0); Globulin 3.8 g/dL (2.3-3.5); Magnesium 2.2 mg/dL (1.6-2.4); Potassium 4.1 mEq/L (3.5-5.1)
--- NOTE | 2024-08-23 09:04 | ECHO ---
HEIGHT: 5 ft 8 in WEIGHT: 215 lb 0 oz DATE OF STUDY: 08/22/[address]: Berkley Yadav SERVICE ESTABLISHMENT ATTENDANT-BC 2-DIMENSIONAL: YES M.MODE: YES DOPPLER: YES COLOR FLOW: YES TDS: NO PORTABLE: YES DEFINITY: NO BUBBLE STUDY: NO DIAGNOSIS: NSTEMI CARDIAC HISTORY: CATHERIZATION:YES SURGERY: NO PROSTHETIC VALVE: NO PACEMAKER: NO MEASUREMENTS (cm) DIASTOLIC (NORMALS) SYSTOLIC (NORMALS) IVSd 1.3 (0.6-1.2) LA Diam 2.4 (1.9-4.0) LVEF 50% LVIDd 4.6 (3.5-5.7) LVIDs 3.5 (2.0-3.5) %FS 24% LVPWd 1.3 (0.6-1.2) Ao Diam 2.9 (2.0-3.7) 2 DIMENSIONAL ASSESSMENT: RIGHT ATRIUM: NORMAL LEFT ATRIUM: NORMAL RIGHT VENTRICLE: NORMAL LEFT VENTRICLE: DEPRESSED EF TRICUSPID VALVE: NORMAL MITRAL VALVE: MILD MITRAL REGURGITATION PULMONIC VALVE: NOT SEEN AORTIC VALVE: MILD AORTIC INSUFFICIENCY PERICARDIAL EFFUSION: NONE AORTIC ROOT: NORMAL LEFT VENTRICULAR WALL MOTION: MILD ANTEROSEPTAL, APICAL HYPOKINESIS. DOPPLER/COLOR FLOW: SEE BELOW. COMMENTS: 1. LOW NORMAL LEFT VENTRICULAR EJECTION FRACTION 50%. 2. MILD ANTEROSEPTAL, APICAL HYPOKINESIS. 3. MILD MITRAL REGURGITATION. 4. MILD AORTIC INSUFFICIENCY. 5. GRADE I DIASTOLIC DYSFUNCTION. TECHNOLOGIST: ELSA MAY
[2024-08-23] MEDS: ASPIRIN EC 81 MG TAB PO SCH (09:06)
[2024-08-23] MEDS: CLOPIDOGREL 75 MG TABLET PO SCH (09:07)
--- NOTE | 2024-08-23 09:21 | P.PN ---
Subjective Date of Service: 08/23/24 Chief Complaint: NSTEMI Subjective: No new changes (pt is without c/o, ECHO performed 08/22/24. [facility] today.) Review of Systems 10-point ROS is otherwise unremarkable General: Unremarkable Eyes: Unremarkable ENT: Unremarkable Respiratory: Unremarkable Cardiovascular: Unremarkable Gastrointestinal: Unremarkable Genitourinary: Unremarkable Musculoskeletal: Unremarkable Integumentary: Unremarkable Neurological: Unremarkable Lymphatics: Unremarkable Physical Examination - Vital Signs Temperature: 97.5 F Blood Pressure: 119/75 Pulse: 78 Respirations: 16 Pulse Ox (%): 94 - Physical Exam General: Alert, In no apparent distress, Oriented x3 HEENT: Atraumatic, Normocephalic Neck: Supple Respiratory: Clear to auscultation bilaterally, Normal air movement Cardiovascular: No edema, Regular rate/rhythm, Normal S1 S2 Capillary refill: <2 Seconds Gastrointestinal: Soft and benign Musculoskeletal: No clubbing, No swelling Integumentary: No rashes Neurological: Normal speech, Sensation intact, Normal affect Lymphatics: No axilla or inguinal lymphadenopathy External genitalia: Deferred Rectal: Deferred - Studies Laboratory Data (last 24 hrs) 08/22/24 08/22/24 08/22/24 09:03 08:37 07:20 APTT 167.6 H* Lipase Cancelled 49 Assessment And Plan - Plan ACS with NSTEMI Pain control ASA Statin BB per cardiology -metoprolol xl 50mg po daily Nitro drip Tele Consult Dr. Zamudio (done, assessed pt in ED at 0930, taking pt to chemical lab supervisor) NPO this am for [facility] Management of HTN Monitor and trend tele, BP, VS, pain level Hypertension Nifedipine 90mg po daily (pt's current medication) Monitor and trend Hyperglycemia without Diabetes dx Hgb A1c FSBS monitoring q6h with mild SSI coverage 08/23/24 Echo performed yest [facility] planned for today liver function elevated today, lipase added to am labs Pt is NPO denies pain Hgb A1c is 8.5 - will need to dc patient with medications for DM VTE/GI prophylaxis Heparin, TEDS/Protonix Discharge Plan: Home Plan to discharge in: 24 Hours - Code Status/Comfort Care Code Status Assessed: Yes (Full) Time Spent Managing PTS Care (In Minutes): 28
--- NOTE | 2024-08-23 12:26 | OP ---
Date of Procedure: 08/22/2024 Surgeon: Jhony Zamudio Procedures Performed: 1.Selective coronary angiogram. 2.PTCA of the LAD. Indication For Procedure: [id number] NM. Complications: None. Estimated Blood Loss: Less than 50 cc. Access: Right radial, closed by TR band. Sedation Time: 30 minutes with 1 of Versed and 25 of fentanyl. Description Of Procedure: After risks, benefits, and alternatives were explained to the patient, the patient agreed to proceed with the procedure and signed informed consent. [facility] to the laborer operator, prepped and draped in a sterile fashion. Time-out was performed. Sedation was administered. Next, right radial access was obtained. [place] 4 catheter was advanced over the J-wire for selective angiogram. That catheter was later exchanged with an XB LAD 3.5 mm guide. Runthrough wire was able to pass across the LAD. PTCA was attempted, but there was no flow. Despite repeated PTCA, it was ADWOA 0 flow, so we decided not to intervene any further as the patient was chest pain-fr ee and hemodynamically stable. At the end of procedure, catheter was removed over a J-wire. Sheath was removed and a TR band applied and hemostasis achieved. The patient was moved back to recovery in stable condition. Findings: 1.Left main, normal. 2.LAD, proximal 100% occluded, most likely subacute. It has been there for at least a week. PTCA a ttempted, but ADWOA 0 flow was noticed. 3.Ramus, very large, extends all the way to the apex. Mild luminal irregularities. 4.Left circ, mild luminal regularities. 5.RCA, large, dominant, very tortuous with proximal 80% disease and mid to distal 80% disease. 6.RPDA, mild luminal regularities, give collaterals to the LAD. Assessment And Plan: 1.Subacute 100% occluded mid LAD. Most likely it has been there for few weeks and attempted PTCA, b ut persistent ADWOA 0 flow. 2.Severe proximal and mid RCA disease. 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 NICKY/SALLY Voice ID: [id number] Report ID: [id number]
--- NOTE | 2024-08-23 13:20 | P.DS ---
Admission Date: 08/22/24 Discharge Date: 08/23/24 Disposition: ROUTINE DISCHARGE Discharge Condition: GOOD Reason for Admission: NSTEMI Consultations: Dr. Zamudio Procedures: ECHO, Left Heart Cath Brief History of Present Illness: Mr. Clint Swain is a 64-year-old male with a past medical history of hypertension. He works nights and while there felt severe indigestion with some nausea. He left early from work and went to sleep and at 04 100 awoke with significant chest pain. Pain was located primarily in the substernal area, epigastric area, and anterior chest wall, bilaterally with radiation to the back. Associated signs and symptoms of abdominal pain, dizziness, lightheadedness, and shortness of breath. The chest pain was described as pressure. Mr. Clint Swain presented to the emergency department and was given Lopressor 50 mg p.o., aspirin 324 mg p.o., and started on a heparin drip. He also received Reglan 10 mg IV, Toradol 30 mg IV, morphine 4 mg IV, 1500 mL normal saline bolus, Zofran 4 mg IV, and Pepcid 20 mg IV. He was pain-free at the time of my assessment. Dr. Zamudio evaluated the patient and plans to take him to the Oceanography Teacher shortly. EKG: Rate is 87 beats/min. Rhythm is regular. QRS [place] is Normal. QT interval is normal. No Q waves. T waves are Normal in leads II, III, aVF. Clinical impression: NSR w/ nonspecific ST/T changes (V2 suspicious) Imaging: Chest x-ray with no acute intrathoracic abnormality Labs: CBC unremarkable, H/H 17.1/50 platelets 219; Chem-7 unremarkable with a creatinine of 1.11 GFR 73, glucose 209, lipase 49. Troponin significant for 4709.6 The hospitalist team will admit him for ACS with non-STEMI Hospital Course: Mr. Clint Swain underwent a left cardiac catheterization. The results necessitate follow-up with a cardiothoracic surgeon for CABG. there was noted collateral circulation which will be allowed to mature prior to CABG. he needs to follow-up with Dr. Zamudio in 1-2 weeks for referral to CT surgery. Echo shows a mildly depressed EF at 50%. Upon discharge, Mr. Clint Swain will be given prescriptions for lisinopril 10 mg p.o. daily, Coreg 6.25 mg p.o. twice daily, atorvastatin 40 mg p.o. nightly, aspirin 81 mg p.o. daily, and Plavix 75 mg p.o. daily. It was also noted that Mr. Clint Swain has an elevated hemoglobin A1c at 8.5. We will discharge him with a prescription for Jardiance 10mg po q hs. Vital Signs/Physical Exam: Temp Pulse Resp BP Pulse Ox 97.5 F 78 16 119/75 94 08/23/24 09:21 08/23/24 09:21 08/23/24 09:21 08/23/24 09:21 08/23/24 09:21 General: Alert, In no apparent distress, Oriented x3 HEENT: Atraumatic, Normocephalic Neck: Supple Respiratory: Normal air movement Cardiovascular: No edema, Regular rate/rhythm, Normal S1 S2 Capillary refill: <2 Seconds Gastrointestinal: Normal bowel sounds Musculoskeletal: No clubbing Integumentary: No rashes Neurological: Normal speech Lymphatics: No axilla or inguinal lymphadenopathy External genitalia: Deferred Rectal: Deferred Laboratory Data at Discharge: WBC 10.50 thou/uL (4.3-10.9) 08/23/24 06:29 Hgb 16.3 g/dL (13.6-17.9) 08/23/24 06:29 Hct 49.5 % (39.6-49.0) H 08/23/24 06:29 Plt Count 217 thou/uL (152-406) 08/23/24 06:29 APTT 52.7 SECONDS (24.3-36.9) H 08/23/24 11:43 Sodium 139 mEq/L (136-145) 08/23/24 06:29 Potassium 4.1 mEq/L (3.5-5.1) 08/23/24 06:29 BUN 13 mg/dL (7-18) 08/23/24 06:29 Creatinine 1.08 mg/dL (0.70-1.30) 08/23/24 06:29 Glucose 174 mg/dL (74-106) H 08/23/24 06:29 Magnesium 2.2 mg/dL (1.6-2.4) 08/23/24 06:29 Total Bilirubin 0.6 mg/dL (0.2-1.0) 08/23/24 06:29 AST 295 U/L (15-37) H 08/23/24 06:29 ALT 79 U/L (16-61) H 08/23/24 06:29 Alkaline Phosphatase 71 U/L (45-117) D 08/23/24 06:29 Triglycerides 189 mg/dL (<150) H 08/23/24 06:29 Cholesterol 240 mg/dL (<200) H 08/23/24 06:29 HDL Cholesterol 52 mg/dL (40-60) 08/23/24 06:29 Cholesterol/HDL Ratio 4.62 08/23/24 06:29 Lipase 35 U/L (13-75) 08/23/24 06:29 Home Medications: NIFEdipine [Nifedipine ER] 90 mg PO DAILY 08/22/24 Aspirin [Aspirin EC 81 MG] 81 mg PO DAILY #360 tab 08/23/24 Atorvastatin Calcium [Lipitor] 40 mg PO BEDTIME #90 tab 08/23/24 Clopidogrel Bisulfate [Plavix*] 75 mg PO DAILY #90 tab 08/23/24 Empagliflozin [Jardiance] 10 mg PO DAILY #90 tab 08/23/24 carvediloL [Coreg] 6.25 mg PO BID #180 tab 08/23/24 lisinopriL [Prinivil*] 10 mg PO DAILY #90 tab 08/23/24 New Medications: Aspirin [Aspirin EC 81 MG] 81 mg PO DAILY #360 tab carvediloL [Coreg] 6.25 mg PO BID #180 tab Empagliflozin [Jardiance] 10 mg PO DAILY #90 tab Atorvastatin Calcium [Lipitor] 40 mg PO BEDTIME #90 tab Clopidogrel Bisulfate [Plavix*] 75 mg PO DAILY #90 tab lisinopriL [Prinivil*] 10 mg PO DAILY #90 tab Physician Discharge Instructions: Mr. Clint Swain underwent a left cardiac catheterization. The results necessitate follow-up with a cardiothoracic surgeon for CABG. there was noted collateral circulation which will be allowed to mature prior to CABG. he needs to follow-up with Dr. Zamudio in 1-2 weeks for referral to CT surgery. Echo shows a mildly depressed EF at 50%. Upon discharge, Mr. Clnit Swain will be given prescriptions for lisinopril 10 mg p.o. daily, Coreg 6.25 mg p.o. twice daily, atorvastatin 40 mg p.o. nightly, aspirin 81 mg p.o. daily, and Plavix 75 mg p.o. daily. It was also noted that Mr. Clint Swain has an elevated hemoglobin A1c at 8.5. We will discharge him with a prescription for Jardiance 10mg po q am. ECHO COMMENTS: 1. LOW NORMAL LEFT VENTRICULAR EJECTION FRACTION 50%. 2. MILD ANTEROSEPTAL, APICAL HYPOKINESIS. 3. MILD MITRAL REGURGITATION. 4. MILD AORTIC INSUFFICIENCY. 5. GRADE I DIASTOLIC DYSFUNCTION. [facility] Findings: "1. Left main, normal. 2. LAD, proximal 100% occluded, most likely subacute. It has been there for at least a week. PTCA attempted, but ADWOA 0 flow was noticed. 3. Ramus, very large, extends all the way to the apex. Mild luminal irregularit ies. 4. Left circ, mild luminal regularities. 5. RCA, large, dominant, very tortuous with proximal 80% disease and mid to distal 80% disease. 6. RPDA, mild luminal regularities, give collaterals to the LAD. Assessment And Plan: 1. Subacute 100% occluded mid LAD. Most likely it has been there for few weeks and attempted PTCA, but persistent ADWOA 0 flow. 2. Severe proximal and mid RCA disease. 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 Diet: AHA Activity: Ad fanny Followup: Levon Thompson MD [Primary Care Provider] - Jhony Zamudio MD [ACTIVE - CAN ADMIT] -
[2024-08-23 13:32] VITALS: BP 139/81; TEMP 97.8
[2024-08-23 13:45] VITALS: O2SAT 98
--- NOTE | 2024-08-23 13:57 | P.PN ---
Subjective Date of Service: 08/23/24 Chief Complaint: NSTEMI Subjective: No new changes, No C/O voiced, Tolerating diet, Ambulating, Improving Review of Systems 10-point ROS is otherwise unremarkable Physical Examination - Vital Signs Temperature: 97.8 F Blood Pressure: 139/81 Pulse: 76 Respirations: 16 Pulse Ox (%): 94 - Physical Exam General: Alert, In no apparent distress HEENT: Atraumatic, PERRLA, EOMI Neck: Supple, JVD not distended Respiratory: Clear to auscultation bilaterally, Normal air movement Cardiovascular: Regular rate/rhythm, Normal S1 S2 Gastrointestinal: Normal bowel sounds, No tenderness Musculoskeletal: No tenderness Integumentary: No rashes Neurological: Normal speech, Normal tone, Normal affect Lymphatics: No axilla or inguinal lymphadenopathy - Studies Medications List Reviewed: Yes Assessment And Plan - Current Problems (Diagnosis) (1) NSTEMI (non-ST elevated myocardial infarction) Current Visit: Yes Status: Acute Plan: coronary angiogram done and shows 100% occluded LAD, failed PTCA and RCA 80% disease, pal nsi for outpatient referral for CABG ASA 81 mg daily Plavix 75 mg daily Lipitor 40 mg daily Echo shows mild reduced EF, anterioseptal hypokinesis (2) HTN (hypertension) Current Visit: Yes Status: Acute Plan: Coreg 6.25 mg po BID Lisinopril 10 mg daily.
== END 2024-08-23 15:02 | disposition home or self-care (01) | DRG 251 ==
LOC: ER 06:51 → ERHOLD 09:34 → 2ND 10:02
PROVIDERS: ADMIT Internal Medicine; ATTEND Internal Medicine Sleep Medicine
PROC: 02703ZZ Dilation of Coronary Artery, One Artery, Percutaneous Approach (ICD-10-PCS; principal; 2024-08-22)
PROC: 4A023N7 Measurement of Cardiac Sampling and Pressure, Left Heart, Percutaneous Approach (ICD-10-PCS; 2024-08-22)
PROC: B2111ZZ Fluoroscopy of Multiple Coronary Arteries using Low Osmolar Contrast (ICD-10-PCS; 2024-08-22)
DX: I21.4 Non-ST elevation (NSTEMI) myocardial infarction (principal); I10 Essential (primary) hypertension; E66.9 Obesity, unspecified; R73.9 Hyperglycemia, unspecified; Z79.82 Long term (current) use of aspirin; Z68.32 Body mass index [BMI] 32.0-32.9, adult; Z79.02 Long term (current) use of antithrombotics/antiplatelets; Z79.899 Other long term (current) drug therapy
CPT/HCPCS: 36415; 71045; 76937; 80048; 80053; 80061; 80076; 82947; 83036; 83690; 83735; 84443; 84484; 85025; 85730; 92920; 93005; 93306; 93458; 99152; 99153; C1725; C1877; C1893; J1644; J2001; J2250; J2405; J2470; J2765; J3010; J7030; J7040; Q9967

== ENCOUNTER 2024-09-06 22:06 | Observation (INO) | payer OTHER ==
[2024-09-06] MEDS ORDERED: LORazepam 2 MG/ML VIAL ONE (23:19)
[2024-09-06 23:31] LABS: Absolute Basophils 0.1 K/uL (0-0.5); Absolute Monocytes 0.8 K/uL (0.1-1.3); Absolute Neutrophil 4.5 K/uL (1.8-8.0); Basophils % 0.9 % (0-1.3); Eosinophils % 0.6 % (0-4.4); Hematocrit 48.5 % (39.6-49.0); Hemoglobin 16.5 g/dL (13.6-17.9); Lymphocytes % 27.2 % (15.3-44.8); MCV 82.3 fL (80-100); MPV 7.7 fL (7.6-11.3); Monocytes % 11.1 % (3.3-12.3); Neutrophils % 60.2 % (41.7-73.7); Platelets 239 thou/uL (152-406); RBC Red Blood Cell Count 5.89 M/uL (4.33-5.43); Red Cell Distribution Width 14.3 % (12.1-15.2)
[2024-09-06 23:46] LABS: ALT/SGPT 34 U/L (16-61); AST/SGOT 13 U/L (15-37); Albumin 3.6 g/dL (3.4-5.0); Albumin/Globulin Ratio 0.9 (1.1-1.8); Alkaline Phosphatase 68 U/L (45-117); Anion Gap 10.9 mEq/L (5.0-15.0); BUN Blood Urea Nitrogen 18 mg/dL (7-18); Bicarbonate 24 mEq/L (21-32); Bilirubin Total 0.6 mg/dL (0.2-1.0); Globulin 3.9 g/dL (2.3-3.5); Glomerular Filtration Rate 62 ml/min (=/>90); Glucose Level 97 mg/dL (74-106); Magnesium 2.2 mg/dL (1.6-2.4); Potassium 3.9 mEq/L (3.5-5.1); Protein, Total 7.5 g/dL (6.4-8.2); Sodium Level 138 mEq/L (136-145)
[2024-09-06 23:50] LABS: Bilirubin Direct < 0.2 mg/dL (0-0.2); Bilirubin Indirect, Calculated 0.4 mg/dL (0.2-0.8)
[2024-09-06 23:54] LABS: Troponin High Sensitivity 86.5 pg/mL (<58.9)
[2024-09-07] MEDS ORDERED: ASPIRIN 81 MG CHEWABLE TABLET ONE (00:17)
--- NOTE | 2024-09-07 01:51 | RAD REPORT ---
EXAM DESCRIPTION: CT of the head without contrast CLINICAL HISTORY: HEADACHE COMPARISON: None available TECHNIQUE: Axial CT of the head obtained from the skull apex to the skull base without contrast. This exam was performed according to our departmental dose-optimization program, which includes automated exposure control, adjustment of the mA and/or kV according to patient size and/or use of it erative reconstruction technique. FINDINGS: No acute intracranial hemorrhage identified. No mass, mass effect, midline shift, or abnormal extra-a xial fluid collection. No CT evidence of acute ischemia identified, however, MRI is more sensitive in the assessment of acute ischemic change. Minimal areas of hypodensity in the supratentorial whit e matter are nonspecific though likely related to chronic small vessel ischemic change. The ventricular system and sulcal spaces are mildly prominent, but proportionate, consistent with atrophy . Basilar cisterns are patent. Intracranial atherosclerosis. Visualized orbits and globes show no acute abnormality. No skull fracture identified. The visualize d paranasal sinuses and mastoid air cells are well aerated. IMPRESSION: No acute intracranial abnormality on noncontrast CT. Electronically signed by: Meagan Medellin MD 09/07/2024 01:37 AM CDT Due to temporary technical issues with the [employer] reporting system, reports are being tori d by the in-house radiologist without review as a courtesy to ensure prompt reporting the interpreting radiologist is fully responsible for the content of the report. Transcribed Date/Time: 09/07/2024 1:51 AM
--- NOTE | 2024-09-07 02:13 | EDPHYS ---
Physician Documentation [facility] [place] Name: Arnav Swain Age: 64 yrs Sex: Male : 1960 Arrival Date: 09/06/2024 Time: 22:06 Bed 17 Private MD: MACEY Physician Peter Villagomez HPI: 09/06 23:00 This 64 yrs old Male presents to ER via Ambulatory with complaints of High cp Blood Pressure. 23:00 The patient has elevated blood pressure and discovered this at home, with a home cp device. Onset: The symptoms/episode began/occurred today. Severity of symptoms: At its worst the blood pressure was 180 mm Hg. 23:00 Associated signs and symptoms: Pertinent positives: headache, Pertinent negatives: cp chest pain, lightheadedness, vomiting, weakness. Historical: - Allergies: 22:09 No Known Allergies; ha1 - Home Meds: 22:09 clonazepam 0.5 mg Oral TbDL nightly [Active]; metformin 500 mg Oral Tb24 2 tabs 2 times ha1 per day [Active]; 09/07 04:54 clonidine HCl 0.1 mg Oral tab [Active]; hydrochlorothiazide 12.5 mg Oral tab 1 tab once kj2 daily [Active]; nifedipine 90 mg Oral TbER 1 tab once daily [Active]; - PMHx: 09/06 22:09 Diabetes - NIDDM; Hypertension; ha1 09/07 04:55 Hypertensive disorder; kj2 - PSHx: 09/06 22:09 HEART CATH (August 2024); ha1 - Immunization history:: Adult Immunizations up to date. - Infectious Disease History:: Denies. - Social history:: Smoking status: Patient denies any tobacco usage or history of. ROS: 23:05 Constitutional: Negative for body aches, chills, fever, poor PO intake, cp 23:05 Cardiovascular: Negative for chest pain, edema, palpitations, cp 23:05 Respiratory: Negative for cough, shortness of breath, wheezing, 23:05 Abdomen/GI: Negative for abdominal pain, vomiting, diarrhea, constipation, 23:05 Neuro: Positive for headache, Negative for altered mental status, numbness, seizure activity, weakness, 23:05 All other systems are negative, Exam: 23:10 Constitutional: The patient appears in no acute distress, alert, awake, cp non-diaphoretic, non-toxic, well developed, well nourished, anxious, overweight 23:10 Head/Face: Normocephalic, atraumatic. cp 23:10 Eyes: Periorbital structures: appear normal, Conjunctiva: normal, no exudate, no injection, Sclera: no appreciated abnormality, Lids and lashes: appear normal, bilaterally, 23:10 ENT: External ear(s): are unremarkable, Nose: is normal, Mouth: Lips: moist, Oral mucosa: pink and intact, moist, Posterior pharynx: is normal, airway is patent, no erythema, no exudate, 23:10 Neck: ROM/movement: is normal, is supple, without pain, no range of motions limitations, 23:10 Chest/axilla: Inspection: normal, 23:10 Cardiovascular: Rate: normal, Rhythm: regular, Edema: is not appreciated, JVD: is not appreciated, 23:10 Respiratory: the patient does not display signs of respiratory distress, Respirations: normal, no use of accessory muscles, no retractions, labored breathing, is not present, Breath sounds: are clear throughout, no decreased breath sounds, no stridor, no wheezing, 23:10 Abdomen/GI: Inspection: abdomen appears normal, Palpation: abdomen is soft and non-tender, in all quadrants, 23:10 Back: pain, is absent, ROM is normal, 23:10 Neuro: Orientation: to person, place \T\ time. Mentation: is normal, Cerebellar function: is grossly normal, Motor: moves all fours, Sensation: is normal, 23:42 ECG was reviewed by the Attending Physician. cp Vital Signs: 22:09 BP 159 / 92; Pulse 73; Resp 16 S; Temp 97.6(T); Pulse Ox 97% on R/A; Weight 90.72 kg; ha1 Height 5 ft. 9 in. ; 22:51 BP 159 / 92; Pulse 78; Resp 20; Pulse Ox 99% on R/A; kj2 23:43 BP 110 / 78; Pulse 79; Resp 20; Pulse Ox 100% on R/A; kj2 09/07 01:59 BP 109 / 77; Pulse 74; Resp 18; Pulse Ox 96% on R/A; kj2 03:00 BP 105 / 71; Pulse 72; Resp 18; Pulse Ox 95% on R/A; kj2 04:53 BP 127 / 85; Pulse 72; Resp 18; Temp 98.1; Pulse Ox 96% on R/A; kj2 09/06 22:09 Body Mass Index 29.53 (90.72 kg, 175.26 cm) ha1 MDM: 09/06 22:31 Medical Screening Exam initiated cp 09/07 02:15 Data reviewed: vital signs, nurses notes, lab test result(s), EKG, radiologic studies, cp CT scan, plain films, and as a result, I will admit patient. 02:15 Differential diagnosis: hypertensive crisis, Malignant HTN, CVA, intracerebral cp hemorrhage. Management of patient was discussed with the following: Hospitalist: DR Donis will admit after discussion. I considered the following discharge prescriptions or medication management in the emergency department Medications were administered in the Emergency Department. See MAR. Care significantly affected by the following chronic conditions: Diabetes, Hypertension. Counseling: I had a detailed discussion with the patient and/or guardian regarding the historical points, exam findings, and any diagnostic results supporting the discharge/admit diagnosis, lab results, radiology results, the need for further work-up and treatment in the hospital. Response to treatment: the patient's symptoms have mildly improved after treatment, and as a result, I will discharge patient. 09/06 23:03 Order name: Basic Metabolic Panel; Complete Time: 00:01 cp 09/07 00:01 Interpretation: Normal except: GFR 62. 09/06 23:03 Order name: CBC with Diff; Complete Time: 00:01 09/07 00:01 Interpretation: Normal except: RBC 5.89. 09/06 23: Order name: LFT's; Complete Time: 00:01 cp 09/07 00:01 Interpretation: Normal except: AST 13; GLOB 3.9; A/G 0.9. 09/06 23:03 Order name: Magnesium; Complete Time: 00:01 cp 09/06 23:03 Order name: Troponin HS; Complete Time: 00:01 cp 09/07 00:01 Interpretation: Troponin HS 86.5; Reviewed. 09/07 04:02 Order name: Magnesium EDMS 09/07 04:02 Order name: Phosphorus EDMS 09/07 04:02 Order name: Urinalysis w/ reflexes EDMS 09/07 04:02 Order name: Creatine Phosphokinase EDW[facility] 09/07 04:02 Order name: Creatine Phosphokinase [facility] 09/07 04:02 Order name: Creatine Phosphokinase [facility] 09/07 04:02 Order name: Creatine Phosphokinase [facility] 09/07 04:02 Order name: Lipid Profile [facility] 09/07 04:02 Order name: Lipid Profile [facility] 09/07 04:02 Order name: Troponin High Sensitivity [facility] 09/07 00:36 Order name: CT Head Brain wo Cont cp 09/07 02:08 Interpretation: Report reviewed. cp 09/07 04:02 Order name: Echo with Doppler [facility] 09/06 22:56 Order name: EKG; Complete Time: 22:56 cp 09/07 04:02 Order name: CONS Physician Consult [facility] 09/06 22:56 Order name: EKG - Nurse/Tech; Complete Time: 00:31 cp 09/06 23:03 Order name: Cardiac monitoring; Complete Time: 23:42 cp 09/06 23:03 Order name: IV Saline Lock; Complete Time: 23:15 cp 09/06 23:03 Order name: Labs collected and sent; Complete Time: 23:15 cp 09/06 23:03 Order name: O2 Per Protocol; Complete Time: 23:42 cp 09/06 23:03 Order name: O2 Sat Monitoring; Complete Time: 23:42 cp EC/25 23:42 Rate is 76 beats/min. Rhythm is regular. [place] interval is normal. QRS interval is normal. cp QT interval is normal. T waves are Inverted in leads I, aVL, V2. Interpreted by me. Reviewed by me. Administered Medications: 23:21 Drug: Ativan IVP 1 mg IVP once Route: IVP; Site: right antecubital; kj2 09/07 00:32 Follow up: Response: No adverse reaction kj2 00:20 Drug: Aspirin PO Chewable Tablet 324 mg PO once; 81 mg tablets x 4 Route: PO; kj2 00:32 Follow up: Response: No adverse reaction kj2 04:53 Drug: Enoxaparin Sub-Q 1 mg/kg Sub-Q once Route: Sub-Q; Site: abdomen; kj2 04:57 Follow up: Response: No adverse reaction kj2 Disposition: 20:46 Chart complete. cp Disposition Summary: 09/07/24 02:13 Hospitalization Ordered Notes: Hospitalization Status: Observation cp Provider: Prince mohit Donis Location: Telemetry/MedSurg (Inpatient) cp Condition: Stable cp Problem: new cp Symptoms: have improved cp Bed/Room Type: Standard cp Room Assignment: 219(09/07/24 04:58) kmf Diagnosis - Hypertensive heart disease without heart failure cp - Abnormal levels of other serum enzymes - elevated troponin cp Forms: - Medication Reconciliation Form cp - SBAR form cp - Leadership Thank You Letter cp Signatures: Dispatcher [employer] EDMS Peter Mclaughlin PA PA cp Yasemin Caballero RN RN ha1 Emily Garcia f Katey Womack RN RN kj2 Corrections: (The following items were deleted from the chart) 04:15 02:13 cp kmf 04:58 04:15 216 kmf kmf
--- NOTE | 2024-09-07 02:13 | ER ---
Nurse's Notes [facility] Name: Arnav Swain Age: 64 yrs Sex: Male : 1960 Arrival Date: 09/06/2024 Time: 22:06 Bed 17 Private MD: Diagnosis: Hypertensive heart disease without heart failure;Abnormal levels of other serum enzymes-elevated troponin Presentation: 09/06 22:09 Chief complaint: Patient states: ELEVATED BLOOD PRESSURE, REDNESS OF LEFT EYE. ha1 22:09 Coronavirus screen: Vaccine status: Patient reports receiving the 2nd dose of the covid ha1 vaccine. YieldMo. Ebola Screen: No symptoms or risks identified at this time. Initial Sepsis Screen: Does the patient meet any 2 criteria? No. Patient's initial sepsis screen is negative. Does the patient have a suspected source of infection? No. Patient's initial sepsis screen is negative. Risk Assessment: Do you want to hurt yourself or someone else? Patient reports no desire to harm self or others. Onset of symptoms was September 06, 2024. 22:09 Method Of Arrival: Ambulatory ha1 22:09 Acuity: BERHANE 3 ha1 Triage Assessment: 22:09 General: Appears comfortable, Behavior is calm, cooperative. Pain: Denies pain. Neuro: ha1 Level of Consciousness is awake, alert, obeys commands, Oriented to person, place, time, situation. Neuro: Reports ELEVATED BP. Cardiovascular: Capillary refill < 3 seconds Patient's skin is warm and dry. Respiratory: Airway is patent Respiratory effort is even, unlabored, Respiratory pattern is regular, symmetrical. Historical: - Allergies: 22:09 No Known Allergies; ha1 - Home Meds: 22:09 clonazepam 0.5 mg Oral TbDL nightly [Active]; metformin 500 mg Oral Tb24 2 tabs 2 times ha1 per day [Active]; 09/07 04:54 clonidine HCl 0.1 mg Oral tab [Active]; hydrochlorothiazide 12.5 mg Oral tab 1 tab once kj2 daily [Active]; nifedipine 90 mg Oral TbER 1 tab once daily [Active]; - PMHx: 09/06 22:09 Diabetes - NIDDM; Hypertension; ha1 09/07 04:55 Hypertensive disorder; kj2 - PSHx: 09/06 22:09 HEART CATH (August 2024); ha1 - Immunization history:: Adult Immunizations up to date. - Infectious Disease History:: Denies. - Social history:: Smoking status: Patient denies any tobacco usage or history of. Screenin:15 [facility] ED Fall Risk Assessment (Adult) History of falling in the last 3 months, kj2 including since admission No falls in past 3 months (0 pts) Confusion or Disorientation No (0 pts) Intoxicated or Sedated No (0 pts) Impaired Gait No (0 pts) Mobility Assist Device Used No (0 pt) Altered Elimination No (0 pt) Score/Fall Risk Level 0 - 2 = Low Risk Maintained a safe environment, Hourly rounding (assess needs \T\ fall precautionary measures) done. Abuse screen: Denies threats or abuse. Denies injuries from another. Nutritional screening: No deficits noted. Tuberculosis screening: No symptoms or risk factors identified. Assessment: 22:15 General: Appears in no apparent distress. Behavior is calm, cooperative. Pain: Denies kj2 pain. Neuro: Level of Consciousness is awake, alert, obeys commands, Oriented to person, place, time, situation. Cardiovascular: Reports HIGH BLOOD PRESSURE Patient's skin is warm and dry. Respiratory: Airway is patent Respiratory effort is unlabored. GI: No signs and/or symptoms were reported involving the gastrointestinal system. : No signs and/or symptoms were reported regarding the genitourinary system. 23:42 Reassessment: Patient appears in no apparent distress at this time. Patient and/or kj2 family updated on plan of care and expected duration. Pain level reassessed. Patient is alert, oriented x 3, equal unlabored respirations, skin warm/dry/pink. 09/07 00:45 Reassessment: Patient appears in no apparent distress at this time. Patient and/or kj2 family updated on plan of care and expected duration. Pain level reassessed. Patient is alert, oriented x 3, equal unlabored respirations, skin warm/dry/pink. 01:57 Reassessment: Patient appears in no apparent distress at this time. Patient and/or kj2 family updated on plan of care and expected duration. Pain level reassessed. Patient is alert, oriented x 3, equal unlabored respirations, skin warm/dry/pink. 03:00 Reassessment: Patient appears in no apparent distress at this time. Patient and/or kj2 family updated on plan of care and expected duration. Pain level reassessed. Patient is alert, oriented x 3, equal unlabored respirations, skin warm/dry/pink. 04:30 Reassessment: Patient appears in no apparent distress at this time. Patient and/or kj2 family updated on plan of care and expected duration. Pain level reassessed. Patient is alert/active/playful, equal unlabored respirations, skin warm/dry/pink. 04:53 Reassessment: Patient appears in no apparent distress at this time. Patient and/or kj2 family updated on plan of care and expected duration. Pain level reassessed. Patient is alert, oriented x 3, equal unlabored respirations, skin warm/dry/pink. Vital Signs: 09/06 22:09 BP 159 / 92; Pulse 73; Resp 16 S; Temp 97.6(T); Pulse Ox 97% on R/A; Weight 90.72 kg; ha1 Height 5 ft. 9 in. ; 22:51 BP 159 / 92; Pulse 78; Resp 20; Pulse Ox 99% on R/A; kj2 23:43 BP 110 / 78; Pulse 79; Resp 20; Pulse Ox 100% on R/A; kj2 09/07 01:59 BP 109 / 77; Pulse 74; Resp 18; Pulse Ox 96% on R/A; kj2 03:00 BP 105 / 71; Pulse 72; Resp 18; Pulse Ox 95% on R/A; kj2 04:53 BP 127 / 85; Pulse 72; Resp 18; Temp 98.1; Pulse Ox 96% on R/A; kj2 09/06 22:09 Body Mass Index 29.53 (90.72 kg, 175.26 cm) 1 ED Course: 09/06 22:08 Patient arrived in ED. mr 22:12 CHRISTIANO HADDAD, RN is Primary Nurse. dd2 22:15 Patient has correct armband on for positive identification. Bed in low position. Call kj2 light in reach. Side rails up X 1. Adult w/ patient. 22:17 Peter Mclaughlin PA is PHCP. cp 22:17 Peter Villagomez MD is Attending Physician. cp 22:41 Triage completed. ha1 22:48 Katey Womack, WENDI is Primary Nurse. kj2 22:52 Provided Education on: CALL LIGHT. kj2 22:53 No provider procedures requiring assistance completed. kj2 23:00 Inserted saline lock: 20 gauge in right antecubital area, using aseptic technique. ha1 Blood collected. Flushed with 10 mL NS. 09/07 00:09 Lead Caregiver paged at 00:10 PAGED KAVITA RESERVE OPERATOR NUMBER FOR DOC TO DOC CONSULT. km 01:26 CT Head Brain wo Cont In Process Unspecified. EDW[place] 02:12 Prince Donis MD is Hospitalizing Provider. cp 04:54 Arm band placed on Patient placed in an exam room, on a stretcher. kj2 04:56 Patient admitted, IV remains in place. kj2 Administered Medications: 09/06 23:21 Drug: Ativan IVP 1 mg IVP once Route: IVP; Site: right antecubital; kj2 09/07 00:32 Follow up: Response: No adverse reaction kj2 00:20 Drug: Aspirin PO Chewable Tablet 324 mg PO once; 81 mg tablets x 4 Route: PO; kj2 00:32 Follow up: Response: No adverse reaction kj2 04:53 Drug: Enoxaparin Sub-Q 1 mg/kg Sub-Q once Route: Sub-Q; Site: abdomen; kj2 04:57 Follow up: Response: No adverse reaction kj2 Medication: 09/06 22:52 VIS not applicable for this client. kj2 Outcome: 09/07 02:13 Decision to Hospitalize by Provider. cp 04:55 Admitted to Med/surg accompanied by tech, via wheelchair, room 219, kj2 04:55 Condition: stable 04:55 Instructed on the need for admit, 05:24 Patient left the ED. kj2 Signatures: Dispatcher [employer] EDW[place] Kelsey Cowart, Reg Reg Peter Horn PA PA cp Yasemin Caballero RN RN ha1 Emily [facility] Katey Womack RN RN kj2 CHRISTIANO HADDAD RN RN dd2
[2024-09-07] MEDS ORDERED: NITROGLYCERIN 0.4 MG/TAB SL PRN (03:56)
[2024-09-07] MEDS ORDERED: ONDANSETRON 4 MG/2 ML VIAL IV PRN (03:56)
--- NOTE | 2024-09-07 04:03 | P.HP ---
Certification for Inpatient Patient admitted to: Observation With expected LOS: <2 Midnights Practitioner: I am a practitioner with admitting privileges, knowledge of patient current condition, hospital course, and medical plan of care. Services: Services provided to patient in accordance with Admission requirements found in Title 42 Section 412.3 of the Code of Federal Regulations Patient History Date of Service: 09/07/24 Reason for admission: elevated blood pressure, elevated trop History of Present Illness: Patient is a 64-year-old male who presented due to concern for elevated blood pressure. Patient has been experiencing a headache today. He has also been feeling stressed. Associated symptoms include some visual changes. Patient states that he is seeing some reddish haze. He has a history of coronary artery disease and scheduled to have a PCI in 1 to 2 weeks. He follows up with Dr. Rdemond from cardiology. He received aspirin and Lovenox in the ER. He was hypotensive when he came in but after medication, he is SBP drop in the 90s. EKG has no signs of ST elevation. His initial troponin is 86. Allergies No Known Allergies Allergy (Unverified 08/22/24 09:49) Home Medications: NIFEdipine [Nifedipine ER] 90 mg PO DAILY 08/22/24 Aspirin [Aspirin EC 81 MG] 81 mg PO DAILY #360 tab 08/23/24 Atorvastatin Calcium [Lipitor] 40 mg PO BEDTIME #90 tab 08/23/24 Clopidogrel Bisulfate [Plavix*] 75 mg PO DAILY #90 tab 08/23/24 Empagliflozin [Jardiance] 10 mg PO DAILY #90 tab 08/23/24 carvediloL [Coreg] 6.25 mg PO BID #180 tab 08/23/24 lisinopriL [Prinivil*] 10 mg PO DAILY #90 tab 08/23/24 - Past Medical/Surgical History Diabetic: Yes -: HTN -: Kidney stones -: Kidney stone - ureter stent Psychosocial/ Personal History: Works nights, lives at home with his - Social History CD- Drugs: No Caffeine use: Yes Physical Examination - Physical Exam General: Acute distress, Obese HEENT: Atraumatic, Normocephalic Cardiovascular: Regular rate/rhythm, Normal S1 S2, Systolic murmur Neurological: Normal speech - Studies Laboratory Data (last 24 hrs) 09/06/24 09/06/24 23:10 23:10 WBC 7.50 Hgb 16.5 Hct 48.5 Plt Count 239 Sodium 138 Potassium 3.9 BUN 18 Creatinine 1.28 Glucose 97 Magnesium 2.2 Total Bilirubin 0.6 AST 13 L ALT 34 Alkaline Phosphatase 68 Assessment and Plan - Problems (Diagnosis) (1) HTN (hypertension) Current Visit: No Status: Acute (2) NSTEMI (non-ST elevated myocardial infarction) Current Visit: No Status: Acute - Plan Assessment This is a 64-year-old male with hypertension coronary disease who is being admitted for uncontrolled hypertension after he presented with headache and some visual changes. His blood pressure is returned to normal limits after initial intervention. His EKG does not show signs of ischemic changes. His first troponin is 86. Uncontrolled hypertension Coronary artery disease Plan: Will admit under observation with telemetry Will hold off antihypertensive medications as his blood pressure is borderline at this time Cardiology consult Will get a 2D echo as well Continue ASA, start atorvastatin Follow lipid panel Resume rest of home medication Patient can be discharged if cleared by cardiology - Advance Directives Does patient have a Living Will: No Does patient have a Durable POA for Healthcare: No
[2024-09-07] MEDS ORDERED: ENOXAPARIN 100 MG/ML SYR SQ ONE (04:50)
[2024-09-07 05:36] VITALS: BMI 29.5
[2024-09-07 06:16] LABS: Magnesium 2.4 mg/dL (1.6-2.4); Phosphorus 4.4 mg/dL (2.5-4.9)
[2024-09-07 06:23] LABS: Troponin High Sensitivity 90.3 pg/mL (<58.9)
[2024-09-07] MEDS: ENOXAPARIN 40 MG/0.4 ML SQ SCH (08:57)
[2024-09-07] MEDS: ASPIRIN EC 81 MG TAB PO SCH (08:57)
--- NOTE | 2024-09-07 17:38 | P.PN ---
Subjective Date of Service: 09/07/24 Chart reviewed. Agree with current plan of care. Patient with recent cardiac catheterization with multivessel disease and requiring coronary artery bypass grafting. Patient scheduled to have appointment for assessment of CABG on Monday. Presented with elevated blood pressure and having some chest discom fort. Patient troponins are mildly elevated. Possible discharge in a.m. if okay with cardiology with outpatient follow-up appointment on Monday. Review of Systems 10-point ROS is otherwise unremarkable Physical Examination - Vital Signs Temperature: 98.0 F Blood Pressure: 127/77 Pulse: 81 Respirations: 20 Pulse Ox (%): 95 - Physical Exam General: Alert, In no apparent distress, Oriented x3 HEENT: Atraumatic, PERRLA, EOMI Neck: Supple, JVD not distended Respiratory: Clear to auscultation bilaterally, Normal air movement Cardiovascular: Regular rate/rhythm, Normal S1 S2 Gastrointestinal: Normal bowel sounds, No tenderness Musculoskeletal: No tenderness Integumentary: No rashes Neurological: Normal speech, Normal tone, Normal affect Lymphatics: No axilla or inguinal lymphadenopathy - Studies Laboratory Data (last 24 hrs) 09/06/24 09/06/24 23:10 23:10 WBC 7.50 Hgb 16.5 Hct 48.5 Plt Count 239 Sodium 138 Potassium 3.9 BUN 18 Creatinine 1.28 Glucose 97 Magnesium 2.2 Total Bilirubin 0.6 AST 13 L ALT 34 Alkaline Phosphatase 68 Medications List Reviewed: Yes Assessment & Plan - Problems (Diagnosis) (1) NSTEMI (non-ST elevated myocardial infarction) Current Visit: No Status: Acute (2) CAD, multiple vessel Current Visit: Yes Status: Acute (3) HTN (hypertension) Current Visit: No Status: Acute - Plan -Serial high-sensitivity troponin -Cardiology consultation -Patient appears to have a type II myocardial infarction related to elevated blood pressure. -Possible outpatient follow-up on Monday with CT surgeon to evaluate for c oronary artery bypass grafting Discharge Plan: Home Plan to discharge in: 24 Hours - Advance Directives Does patient have a Living Will: No Does patient have a Durable POA for Healthcare: No - Code Status/Comfort Care Code Status Assessed: Yes Code Status: Full Code Critical Care: No Time Spent Managing PTS Care (In Minutes): 30
[2024-09-07] MEDS: ATORVASTATIN 80 MG TAB PO SCH (20:18)
[2024-09-08] MEDS: HYDRALAZINE HCL 20 MG/ML VIAL IV ONE (04:52)
[2024-09-08] MEDS: Jardiance 10 MG Tablet **OWN MED PO SCH (09:00)
[2024-09-08] MEDS: ASPIRIN EC 81 MG TAB PO SCH (09:09)
[2024-09-08] MEDS: carvediloL 6.25 MG TAB PO SCH (09:10)
[2024-09-08] MEDS: CLOPIDOGREL 75 MG TABLET PO SCH (09:10)
[2024-09-08] MEDS: lisinopriL 10 MG TAB PO SCH (09:10)
[2024-09-08 09:57] VITALS: O2SAT 95
[2024-09-08 12:47] VITALS: BP 139/79; TEMP 97.6
--- NOTE | 2024-09-08 13:30 | P.DS ---
Admission Date: 09/07/24 Discharge Date: 09/08/24 Disposition: ROUTINE DISCHARGE Discharge Condition: GOOD Reason for Admission: elevated blood pressure, elevated trop Consultations: Cardiology Brief History of Present Illness: Patient is a 64-year-old male who presented due to concern for elevated blood pressure. Patient has been experiencing a headache today. He has also been feeling stressed. Associated symptoms include some visual changes. Patient states that he is seeing some reddish haze. He has a history of coronary artery disease and has had a recent cardiac cath and is scheduled for an appointment for discussion about CABG . He follows up with Dr. Zamudio from cardiology. He received aspirin and Lovenox in the ER. He was hypertensive when he came in but after medication, he is SBP drop in the 90s. EKG has no signs of ST elevation. His initial troponin is 86. Hospital Course: Mr. Clint Swain has been stable since admission. He has denied chest pain since admission. He is concerned about a blood pressure ranging up to the 170s systolic. He takes Coreg and lisinopril. We will give an additional prescription for Imdur 30 mg p.o. daily and he will be discharged for follow-up in 2 days with cardiology for discussion regarding CABG. (Monday09/10/24) Vital Signs/Physical Exam: Temp Pulse Resp BP Pulse Ox 97.6 F 79 16 139/79 94 09/08/24 12:00 09/08/24 12:00 09/08/24 12:00 09/08/24 12:00 09/08/24 12:00 General: Alert, In no apparent distress, Oriented x3 HEENT: Atraumatic, Normocephalic Neck: Supple Respiratory: Clear to auscultation bilaterally, Normal air movement Cardiovascular: Normal pulses, Regular rate/rhythm Capillary refill: <2 Seconds Gastrointestinal: Soft and benign Musculoskeletal: No clubbing, No swelling Integumentary: No rashes Neurological: Normal speech, Normal tone, Sensation intact Lymphatics: No axilla or inguinal lymphadenopathy External genitalia: Deferred Rectal: Deferred Laboratory Data at Discharge: WBC 7.50 thou/uL (4.3-10.9) 09/06/24 23:10 Hgb 16.5 g/dL (13.6-17.9) 09/06/24 23:10 Hct 48.5 % (39.6-49.0) 09/06/24 23:10 Plt Count 239 thou/uL (152-406) 09/06/24 23:10 Sodium 138 mEq/L (136-145) 09/06/24 23:10 Potassium 3.9 mEq/L (3.5-5.1) 09/06/24 23:10 BUN 18 mg/dL (7-18) 09/06/24 23:10 Creatinine 1.28 mg/dL (0.70-1.30) 09/06/24 23:10 Glucose 97 mg/dL (74-106) 09/06/24 23:10 Phosphorus 4.4 mg/dL (2.5-4.9) 09/07/24 05:30 Magnesium 2.4 mg/dL (1.6-2.4) 09/07/24 05:30 Total Bilirubin 0.6 mg/dL (0.2-1.0) 09/06/24 23:10 AST 13 U/L (15-37) L 09/06/24 23:10 ALT 34 U/L (16-61) 09/06/24 23:10 Alkaline Phosphatase 68 U/L (45-117) 09/06/24 23:10 Triglycerides 114 mg/dL (<150) 09/08/24 04:46 Cholesterol 129 mg/dL (<200) 09/08/24 04:46 HDL Cholesterol 40 mg/dL (40-60) 09/08/24 04:46 Cholesterol/HDL Ratio 3.23 09/08/24 04:46 Home Medications: Aspirin [Aspirin EC 81 MG] 81 mg PO DAILY #360 tab 08/23/24 Atorvastatin Calcium [Lipitor] 40 mg PO BEDTIME #90 tab 08/23/24 Clopidogrel Bisulfate [Plavix*] 75 mg PO DAILY #90 tab 08/23/24 Empagliflozin [Jardiance] 10 mg PO DAILY #90 tab 08/23/24 carvediloL [Coreg] 6.25 mg PO BID #180 tab 08/23/24 lisinopriL [Prinivil*] 10 mg PO DAILY #90 tab 08/23/24 Isosorbide Mononitrate [Isosorbide Mononitrate ER] 30 mg PO DAILY #30 tab 09/08/24 New Medications: Isosorbide Mononitrate [Isosorbide Mononitrate ER] 30 mg PO DAILY #30 tab Physician Discharge Instructions: Mr. Clint Swain has been stable since admission. He has denied chest pain since admission. He is concerned about a blood pressure ranging up to the 170s systolic. He takes Coreg and lisinopril. We will give an additional prescription for Imdur 30 mg p.o. daily and he will be discharged for follow-up in 2 days with cardiology for discussion regarding CABG. (Monday09/10/24) Continue home medications as instructed. New medication: Imdur 30mg po daily # 30 -DC IV and DC home -Follow-up with PCP in 1 to 2 weeks -Follow-up with Cardiology in 2 days (09/10/24) -Please call Dr. Bland at [phone] if any questions regarding hospital stay -Please call nursing station at [phone] if any nursing or medication questions -Return to the emergency room if symptoms worsen Diet: ADA Activity: Ad fanny Followup: Levon Thompson MD [Primary Care Provider] -
[2024-09-08] MEDS: ISOSORBIDE MONO SR 30 MG TAB PO SCH (14:15)
--- NOTE | 2024-09-08 14:45 | P.CNS ---
Date of Consult: 09/08/24 Chief Complaint: elevated blood pressure, elevated trop History of Present Illness: Patient with PMH of HTN, CAD, recent NSTEMI, coronary angiogram that shown significant proximal LAD 100% occluded and severe RCA disease, presented with high BP, chest discomfort felt last night but better today, denies any other cardiac symptoms. Allergies No Known Allergies Allergy (Verified 09/07/24 05:32) Home medications list reviewed: Yes Home Medications: Aspirin [Aspirin EC 81 MG] 81 mg PO DAILY #360 tab 08/23/24 Atorvastatin Calcium [Lipitor] 40 mg PO BEDTIME #90 tab 08/23/24 Clopidogrel Bisulfate [Plavix*] 75 mg PO DAILY #90 tab 08/23/24 Empagliflozin [Jardiance] 10 mg PO DAILY #90 tab 08/23/24 carvediloL [Coreg] 6.25 mg PO BID #180 tab 08/23/24 lisinopriL [Prinivil*] 10 mg PO DAILY #90 tab 08/23/24 Isosorbide Mononitrate [Isosorbide Mononitrate ER] 30 mg PO DAILY #30 tab 09/08/24 - Past Medical/Surgical History Diabetic: Yes -: HTN -: Kidney stones -: Kidney stone - ureter stent Psychosocial/ Personal History: Works nights, lives at home with his - Social History Alcohol use: No CD- Drugs: No Caffeine use: Yes Place of Residence: Home Review of Systems 10-point ROS is otherwise unremarkable Physical Examination Temp Pulse Resp BP Pulse Ox 97.6 F 79 16 139/79 94 09/08/24 12:00 09/08/24 12:00 09/08/24 12:00 09/08/24 12:00 09/08/24 12:00 General: Alert, In no apparent distress HEENT: Atraumatic, PERRLA, Mucous membr. moist/pink, EOMI, Sclerae nonicteric Neck: Supple, 2+ carotid pulse no bruit, No LAD, Without JVD or thyroid abnormality Respiratory: Clear to auscultation bilaterally, Normal air movement Cardiovascular: Regular rate/rhythm, Normal S1 S2 Gastrointestinal: Normal bowel sounds, No tenderness Musculoskeletal: No tenderness Integumentary: No rashes Neurological: Normal gait, Normal speech, Normal tone, Normal affect Lymphatics: No axilla or inguinal lymphadenopathy - Problems (1) CAD, multiple vessel Status: Acute Plan: Mild leak in Troponin, most likely secondary to high BP, down trended continue ASA 81 mg daily Plavix 75 mg daily Lipitor 40 mg daily agree with adding Imdur 30 mg daily keep follow up appointment with CT surgery. (2) HTN (hypertension) Status: Acute Plan: continue Coreg 6.25 mg po BID continue Lisinopril 10 mg daily Imdur 30 mg daily
[2024-09-08] MEDS ORDERED: ATORVASTATIN 40 MG TAB PO SCH (21:00)
--- NOTE | 2024-09-09 12:38 | EKG ---
Test Date: 2024-09-06 Test Time: 23:36:15 Supervisor [employer]: AKI MEASUREMENT RESULTS: Intervals: Rate: 76 [place]: 192 QRSD: 96 QT: 420 QTc: 472 [place]: P: 53 [place]: 192 QRS: 74 T: 102 INTERPRETIVE STATEMENTS: Normal sinus rhythm Normal ECG Compared to ECG 08/22/2024 08:27:29 Myocardial infarct finding no longer present Electronically Signed On 09-09-24 12:37:00 CDT by Jhony Zamudio
== END 2024-09-08 14:30 | disposition home or self-care (01) ==
LOC: ER 22:06 → 2ND 09-07 03:56
PROVIDERS: ADMIT Internal Medicine; ATTEND Hospitalist
DX: I21.4 Non-ST elevation (NSTEMI) myocardial infarction (principal); I10 Essential (primary) hypertension; R79.89 Other specified abnormal findings of blood chemistry; R51.9 Headache, unspecified; H53.9 Unspecified visual disturbance; I66.12 Occlusion and stenosis of left anterior cerebral artery; I66.11 Occlusion and stenosis of right anterior cerebral artery; Z79.82 Long term (current) use of aspirin; E11.9 Type 2 diabetes mellitus without complications
CPT/HCPCS: 85025; 80048; 36415 ×2; 83735 ×2; 82550 ×3; 84100; 80061; 82947 ×4; 80076; 84484 ×2; 70450; 94760 ×3; J1650 ×3; J0360; 93005; G0378

== ENCOUNTER 2025-08-07 07:00 | Day surgery (SDC) | payer MEDICARE ==
[2025-08-06 11:07] LABS: Absolute Lymphocytes (CBC) 1.5 K/uL (0.7-4.9); Hematocrit 53.0 % (39.6-49.0); Hemoglobin 17.8 g/dL (13.6-17.9); MCH 27.8 pg (27.0-35.0); MCHC 33.5 g/dL (32.0-36.0); MCV 83.0 fL (80-100); MPV 7.5 fL (7.6-11.3); Nucleated RBC Absolute Count 0.0 (0-0); Nucleated Red Blood Cells % 0.2 % (0-0); RBC Red Blood Cell Count 6.39 M/uL (4.33-5.43); White Blood Count 6.20 thou/uL (4.3-10.9)
[2025-08-06 11:17] LABS: PT Prothrombin Time 11.3 SECONDS (10-13.0); PTT, Activated Partial Thromb 33.5 SECONDS (27.2-37.4); Protime INR 1.0
[2025-08-06 11:19] LABS: Anion Gap 8.5 mEq/L (5.0-15.0); BUN Blood Urea Nitrogen 17.0 mg/dL (7-18); Glucose Level 111.0 mg/dL (74-106); Potassium 4.5 mEq/L (3.5-5.1)
[2025-08-07] MEDS ORDERED: NA CHLORIDE 0.9% 500 ML ONE (07:13)
[2025-08-07 08:08] VITALS: TEMP 97.8
[2025-08-07] MEDS ORDERED: FENTANYL CITR 100 MCG/2 ML ONE (08:30)
[2025-08-07] MEDS ORDERED: MIDAZOLAM HCL 2 MG/2 ML INJ ONE (08:30)
[2025-08-07] MEDS ORDERED: HEPA 1000U/500MLS 2,000 UNIT/1,000 ML BAG IV ONE (08:38)
[2025-08-07] MEDS ORDERED: HEPARIN 5000 UNIT/ML 1 ML VIAL ONE (08:39)
[2025-08-07] MEDS ORDERED: HEPARIN 10,000 UNIT/10 ML VIAL IV ONE (08:39)
[2025-08-07] MEDS ORDERED: LIDOCAINE 1% 20 ML MDV ONE (08:39)
[2025-08-07 11:56] VITALS: BP 115/55; O2SAT 98
--- NOTE | 2025-08-12 00:55 | OP ---
Date of Procedure: 08/07/2025 Surgeon: Jhony Zamudio Procedure Performed: Selective coronary angiogram of bypass graft. Indication For Procedure: Unstable angina. Complications: None. Estimated Blood Loss: Less than 50 cc. Access: Right common femoral artery, closed by Mynx. Complications: None. Estimated Blood Loss: Less than 50 cc. Sedation Time: 30 minutes with 1 of Versed and 25 of fentanyl. Description Of Procedure: After risks, benefits, and alternatives were explained to the patient, the patient agreed to proceed with the procedure and signed informed consent. The patient was brought b [facility] to the photofinishing laboratory worker, prepped and draped in sterile fashion. Time-out was performed. Sedation was ad ministered. Next, right common femoral artery access was obtained using ultrasound-guided micropunct ure technique. JL4 catheter was advanced to the aortic root. Selective angiogram of the left system was done using that catheter. That was later exchanged with a JR4 catheter for selective angiogram of the right coronary artery and that catheter was later exchanged for an ULISSES catheter for the select ariela angiogram of the NAJERA, followed by a multipurpose 1 catheter for the selective angiogram of the S VG to the PDA graft. At the end of procedure, catheter was removed over a J-wire. Sheath was remove d. Mynx was applied. Hemostasis was achieved and the patient was moved back to recovery in stable c ondition. Findings: 1. Left main normal. 2. LAD proximal 100% occluded. 3. Left circ large with mild luminal irregularities. 4. OM1 large with mild luminal irregularities. 5. RCA, very tortuous artery with proximal 70% disease followed by mid 80% disease. Continues as RPL V. 6. RPDA proximal 100% occluded. Grafts: 1. NAJERA to LAD is patent. 2. SVG to RPDA is patent. Assessment: Significant [place] CAD with patent grafts. Plan: To continue medical management. SAUNDERS/MODL Voice ID: [id number] Report ID: [id number]
== END 2025-08-07 11:50 | disposition home or self-care (01) ==
LOC: CCL 07:00
PROVIDERS: ATTEND Internal Medicine Interventional Cardiology
DX: I25.110 Atherosclerotic heart disease of native coronary artery with unstable angina pectoris (principal); I25.82 Chronic total occlusion of coronary artery; I77.1 Stricture of artery; I11.0 Hypertensive heart disease with heart failure; I50.22 Chronic systolic (congestive) heart failure; E78.2 Mixed hyperlipidemia; Z95.1 Presence of aortocoronary bypass graft; Z79.82 Long term (current) use of aspirin; Z79.85 Long-term (current) use of injectable non-insulin antidiabetic drugs; Z79.899 Other long term (current) drug therapy
CPT/HCPCS: 93005; 85025; 80048; 36415; 85610; 85730; 93455; 76937; C1893; Q9967; J2003; J2250; J3010; J1644; J7040; C1760; 93459; 99152; 99153